=== PATIENT | female | born 1960 ===

== ENCOUNTER 2020-08-20 11:30 | Outpatient (REF) | payer MEDICARE, MEDICAID, SELFPAY | END 2020-08-20 11:31 | disposition home or self-care (01) | LOC: HO.HMGCLDS 11:30 | PROVIDERS: PCP Internal Medicine; Visit Provider Internal Medicine | DX: Z20.828 Contact with and (suspected) exposure to other viral communicable diseases (principal) | CPT/HCPCS: C9803; U0003 ==

== ENCOUNTER 2021-09-09 12:41 | Outpatient (REF) | payer MEDICARE, MEDICAID, SELFPAY ==
[2021-09-09 13:52] LABS: MANUAL DIFF FLAG NO
[2021-09-09 13:54] LABS: Basophils Percent Auto 0.3 % (0-2); Eosinophils Absolute Auto 0.2 X10*3/uL (0.0-0.4); Eosinophils Percent Auto 2.6 % (0-4); Hematocrit 39.6 % (37.0-47.0); Hemoglobin 12.6 g/dl (12.0-16.0); Imm Gran Abs Auto 0.03 X10*3/uL (0.00-0.03); Imm Gran Pct Auto 0.4 % (0.0-0.4); Lymphocytes Absolute Auto 1.7 X10*3/uL (1.2-4.9); Lymphocytes Percent Auto 21.8 % (20-40); Mean Corpuscular HGB Conc 31.8 g/dl (31.0-35.0); Mean Corpuscular Hemoglobin 28.3 pg (27.0-33.0); Mean Platelet Volume 11.3 fL (9.4-12.3); Monocytes Absolute Auto 0.7 X10*3/uL (0.1-1.2); Monocytes Percent Auto 9.3 % (2-11); Neutrophils Absolute Auto 5.2 x10*3/uL (2.0-8.3); Neutrophils Percent Auto 65.6 % (45-73); Platelet Count 255 X10*3/uL (160-400); Red Blood Count 4.45 X10*6/uL (4.20-5.50); Red Cell Distribution Width 14.3 % (11.0-16.0); White Blood Count 7.8 X10*3/uL (4.8-10.8)
[2021-09-09 14:30] LABS: Alanine Aminotransferase 17 U/L (0-31); Albumin Level 4.1 g/dL (3.5-5.0); Alkaline Phosphatase 105 U/L (39-117); Anion Gap 11 (12-20); Aspartate Amino Transferase 17 U/L (5-31); Bilirubin Total 0.4 mg/dL (0.0-1.0); Blood Urea Nitrogen 19 mg/dL (9-16); Calcium 9.8 mg/dL (8.4-10.2); Carbon Dioxide 30 mmol/L (22-29); Chloride 106 mmol/L (96-108); Cholesterol 235 mg/dL; Estimated Glomerular Filt Rate > 60; Glucose Random 87 mg/dL (60-115); HDL Cholesterol 54 mg/dL; LDL Cholesterol Calculated 162 mg/dl; Potassium 4.3 mmol/L (3.3-5.1); Sodium 143 mmol/L (135-145); Total Protein 7.5 g/dL (6.5-8.0); Triglycerides 95 mg/dL
[2021-09-09 14:39] LABS: TSH reflex Free T4 0.89 uIU/mL (0.32-4.0)
[2021-09-10 23:22] LABS: LDL Cholesterol Direct 160 mg/dL (<100)
== END 2021-09-09 12:42 | disposition home or self-care (01) ==
LOC: HO.HMGCLDS 12:41
PROVIDERS: PCP Internal Medicine; Visit Provider Internal Medicine
DX: E05.90 Thyrotoxicosis, unspecified without thyrotoxic crisis or storm (principal); E78.9 Disorder of lipoprotein metabolism, unspecified; F41.0 Panic disorder [episodic paroxysmal anxiety]; G43.109 Migraine with aura, not intractable, without status migrainosus
CPT/HCPCS: 36415; 80053; 80061; 83721; 84443; 85025

== ENCOUNTER 2023-06-21 13:03 | Outpatient (AMB) | payer MEDICARE, MEDICAID, SELFPAY ==
[2023-06-21 13:14] VITALS: BP 148/82; PULSE 80; TEMP 36.6; O2SAT 98
--- NOTE | 2023-06-21 13:14 | AM.OFFWIN_ITS ---
Intake Vital Signs 06/21/23 13:14 Height 5 ft 5 in Weight 180 lb BMI 30.0 BP 148/82 H Blood Pressure Location Rt brachial Position Sitting Pulse 80 Pulse Source Pulse Oximeter Temp 97.8 F Temp Source Temporal Artery Scan Pulse Oximetry (%) 98 Intake Visit Reasons: EP Headache, High BP, dizzy Intake Note: pt is here for c/o headaches, high blood pressure readings, dizziness. Patient Tobacco Use Status: Never used Tobacco Allergies gabapentin Allergy (Unknown, Verified 06/21/23 13:14) rash No Known Allergies Allergy (Verified 06/21/23 13:14) Do you need a note to return to daycare/school/sports/work: Yes HPI HPI Comments History of Present Illness Details 62-year-old female presents to the [facility] for a sick visit. She is accompanied by her daughter for this visit. Patient is complaining of feeling tired, dizzy and occasional headaches. She has been having elevated blood pressure since Wednesday. Systolic blood pressure has been in the 160 range. No nausea or vomiting. [facility] Social History Housing: House Alcohol intake: never Patient Tobacco Use Status: Never used Tobacco Second Hand Smoke Exposure: Yes Current occupational status: unemployed Physical Exam Vital Signs: Last Vital Signs Temp 97.8 F 06/21/23 13:14 Pulse 80 06/21/23 13:14 BP 148/82 H 06/21/23 13:14 Pulse Ox 98 06/21/23 13:14 BMI result Body Mass Index 30.0 Const General: cooperative and healthy appearing Nutritional Appearance: well nourished Orientation/consciousness: patient oriented x3 Limitations: no limitations HEENT Head: Yes normal to inspection Eyes General: appearance normal, both eyes and all related structures Neck Neck: Yes normal visual inspection Chest Chest palpation & inspection: normal palpation of entire chest wall Resp Effort & Inspection: normal respiratory effort Neuro General: patient oriented x3 Assessment & Plan Assessment & Plan (1) Essential hypertension: Code(s): I10 - Essential (primary) hypertension Plan: Medications have been started. Follow-up with primary care provider. Medications: New enalapril maleate 5 mg PO DAILY 30 tabs 0RF Coding Level of Care Code Est Pt Level 4 (74016) Diagnoses Essential hypertension I10
== END 2023-06-21 14:09 | disposition home or self-care (01) ==
PROVIDERS: PCP Internal Medicine; Visit Provider Internal Medicine
DX: I10 Essential (primary) hypertension (principal)
CPT/HCPCS: 99214

== ENCOUNTER 2023-06-23 13:27 | Outpatient (AMB) | payer MEDICARE, MEDICAID, SELFPAY ==
[2023-06-23 13:38] VITALS: BP 124/78; PULSE 96; O2SAT 97
--- NOTE | 2023-06-23 13:38 | A.OFFPC_ITS ---
Vital Signs 06/23/23 13:38 Height 5 ft 5 in Weight 180 lb 8 oz BMI 30.0 BP 124/78 Blood Pressure Location Rt brachial Position Sitting Pulse 96 Pulse Source Pulse Oximeter Pulse Oximetry (%) 97 Oxygen Delivery Method Room Air Intake Visit Reasons: Follow up Walk-in -BP, Dizziness Allergies gabapentin Allergy (Unknown, Verified 06/23/23 13:38) rash No Known Allergies Allergy (Verified 06/23/23 13:38) Medication List - Last Reconciled 06/23/23 by Anuj Schmid MD atorvastatin 40 mg PO DAILY 90 days cetirizine (Zyrtec) 10 mg PO DAILY PRN 90 days enalapril maleate 5 mg PO DAILY escitalopram oxalate (Lexapro) 10 mg PO DAILY 90 days Tobacco use date assessed: 06/23/23 Dental Screening Dental Screen Date: 06/23/23 Did you have a dental visit in the last 12 months?: Yes Did you have a dental problem in the last 6 months where you did not have access to dental care?: No Was dental information given to patient?: Patient has dentist HPI Follow up Walk-in -BP, Dizziness HPI Details Patient is 62-year-old female who was last seen August of 2021 after that patient did not come in for follow-up She tells me that she went to [place] and just returned back this month. Patient has been taking atorvastatin 40 mg all along But she stopped taking blood pressure medication She was evaluated in walk-in clinic on of this month when she presented w ith high blood pressure and dizziness. Patient was started back on enalapril 5 mg she is feeling much better. She is no longer taking any anxiety medication However she is complaining of severe constipation She has tried Dulcolax which has not helped her. I have told her to start taking Senokot S1 or 2 tablets every night. Most importantly she has to drink plenty of water every day. Add high-fiber diet. Labs are needed to be done today. Patient will return next month for physical examination. [facility] Social History Housing: House Alcohol intake: never Patient Tobacco Use Status: Never used Tobacco e-Cigarette/Vaping Use: Never Used Second Hand Smoke Exposure: Yes Current occupational status: unemployed Cognitive needs: No Hearing needs: No Vision needs: No Questionnaire PHQ-9 Over the last 2 weeks, how often have you been bothered by any of the following problems? 1. Little interest or pleasure in doing things: several days 2. Feeling down, depressed, or hopeless: several days 3. Trouble falling or staying asleep, or sleeping too much: several days 4. Feeling tired or having little energy: not at all 5. Poor appetite or overeating: not at all 6. Feeling bad about yourself - or that you are a failure or have let yourself or your family down: several days 7. Trouble concentrating on things, such as reading the newspaper or watching television: several days 8. Moving or speaking so slowly that other people could have noticed. Or the opposite - being so fidgety or restless that you have been moving around a lot more than usual: not at all 9. Thoughts that you would be better off or of hurting yourself in some way: not at all Total score: 5 Depression Screening Interpretation: Negative 51413 - PHQ-9 Billing: Yes Source: Developed by Drs. Yaron Olmstead, Amy Spain, Sandeep Bennett and colleagues, with an educational inder from [employer]. Thrive Questionnaire Date Thrive assessed: 06/23/23 I am a: Patient What is your living situation today?: I have a steady place to live Within the past 12 months, did the food you bought not last and you didn't have the money to get more?: Sometimes True Within the past 12 months, did you worry whether your food would run out before you got money to buy more?: Sometimes True Do you have trouble paying for medicines?: No Do you have trouble getting transportation to medical appointments?: No Do you have trouble paying your heating and electricity bill?: Yes Do you have trouble taking care of your child, family member or friend?: Yes Do you have trouble with day-to-day activities such as bathing, preparing meals, shopping, managing finances, etc.?: Yes Are you currently unemployed and looking for a job?: Yes Are you interested in more education?: Yes Currently or been in a relationship where the following occur: no concerns reported AUDIT C Alcohol Use Questionnaire (AUDIT-C) 1. How often do you have a drink containing alcohol?: Never 3. How often do you have six or more drinks on one occasion?: Never Total Score: 0 Score Reviewed/Action Taken: Yes SHANKAR-7 AMB Questionnaire SHANKAR-7 Date SHANKAR - 7 assessed: 06/23/23 Feeling nervous, anxious, or on edge: 0 = Not at all Not being able to stop or control worryin = Not at all Worrying too much about different things: 0 = Not at all Trouble relaxin = Not at all Being so restless that it is hard to sit still: 0 = Not at all Becoming easily annoyed or irritable: 0 = Not at all Feeling afraid as if something awful might happen: 0 = Not at all Total SHANKAR-7 score (0-4 normal; 5-9 mild; 10-14 moderate; 15-21 severe): 0 Source: Developed by Drs. Yaron Olmstead, Amy Spain, Sandeep Bennett and colleagues, with an educational inder from [employer]. SHANKAR-7 Assessment Billing SHANKAR-7 Assessment Tool: SHANKAR-7 Assessment 59829 Review of Systems Const Denies chills and Denies fever(s) ENT Denies epistaxis and Denies nasal discharge Card Denies chest pain Resp Denies chest congestion, Denies cough and Denies hemoptysis GI Denies diarrhea and Denies nausea Skin/Breast Denies rash Neuro Reports no additional complaints Psych Reports no additional complaints Endo Reports no additional complaints Physical exam (Primary Care) Vital Signs: Last Vital Signs Pulse 96 06/23/23 13:38 BP 124/78 06/23/23 13:38 Pulse Ox 97 06/23/23 13:38 Oxygen Delivery Method Room Air 06/23/23 13:38 BMI result Body Mass Index 30.0 Tobacco/Smoking Status: Tobacco use Status Tobacco use date assessed 06/23/23 06/23/23 13:38 Patient Tobacco Use Status Never used Tobacco 06/23/23 13:38 e-Cigarette/Vaping Use Never Used 06/23/23 13:38 PHQ-9: PHQ-9 Score PHQ-9: Total score 5 06/23/23 13:58 Depression Screening Interpretation: Negative Thrive Assessment: Date of Thrive Assessment Date Thrive assessed 06/23/23 06/23/23 13:58 Currently or been in a relationship where the following occur: no concerns reported Const General: cooperative, comfortable and no acute distress Orientation/consciousness: patient oriented x3 HENMT Head: Yes normocephalic Eyes General: appearance normal, both eyes and all related structures Neck Neck: Yes supple Resp Effort & Inspection: normal respiratory effort, no cough and no stridor Cardio Rhythm: regular rhythm Heart sounds: S1 normal heart sound present and S2 normal heart sound present Skin General skin exam: turgor normal Neuro General: patient oriented x3, tone normal and moves all extremities Extrem Right lower extremity: no edema Left lower extremity: no edema Assessment and Plan Assessment & Plan (1) Essential hypertension: Code(s): I10 - Essential (primary) hypertension (2) Lipid disorder: Code(s): E78.9 - Disorder of lipoprotein metabolism, unspecified (3) Constipation: Code(s): K59.00 - Constipation, unspecified Qualifiers: Constipation type: slow transit constipation Qualified Code(s): K59.01 - Slow transit constipation Plan Patient is 62-year-old female who was last seen August of 2021 after that patient did not come in for follow-up She tells me that she went to [place] and just returned back this month. Patient has been taking atorvastatin 40 mg all along But she stopped taking blood pressure medication She was evaluated in walk-in clinic on of this month when she presented with high blood pressure and dizziness. Patient was started back on enalapril 5 mg she is feeling much better. She is no longer taking any anxiety medication However she is complaining of severe constipation She has tried Dulcolax which has not helped her. I have told her to start ta sofiya Senokot S1 or 2 tablets every night. Most importantly she has to drink plenty of water every day. Add high-fiber diet. Labs are needed to be done today. Patient will return next month for physical examination. Orders: Orders Comprehensive Met. Panel Today E78.9 - Disorder of lipoprotein metabolism, unspecified, I10 - Essential (primary) hypertension, K59.00 - Constipation, unspecified Complete Blood Count Auto Diff Today E78.9 - Disorder of lipoprotein metabolism, unspecified, I10 - Essential (primary) hypertension, K59.00 - Constipation, unspecified TSH reflex Free T4 Today E78.9 - Disorder of lipoprotein metabolism, unspecified, I10 - Essential (primary) hypertension, K59.00 - Constipation, unspecified LDL Cholesterol Direct Today E78.9 - Disorder of lipoprotein metabolism, unspecified, I10 - Essential (primary) hypertension, K59.00 - Constipation, unspecified Medications: Refilled enalapril maleate 5 mg PO DAILY 90 tabs 0RF Discontinued escitalopram oxalate (Lexapro) Discontinued Reason: Doctor's Order 10 mg PO DAILY 90 days 90 tabs 0RF F41.0 - Panic disorder [episodic paroxysmal anxiety] Coding Level of Care Code Est Pt Level 4 (85760) Diagnoses Essential hypertension I10 Lipid disorder E78.9 Slow transit constipation K59.01 Constipation type: slow transit constipation Additional Codes SHANKAR-7 Assessment Billing - SHANKAR-7 Assessment Tool: SHANKAR-7 Assessment 58813 ([id number])
== END 2023-06-23 13:54 | disposition home or self-care (01) ==
PROVIDERS: PCP Internal Medicine; Visit Provider Internal Medicine
DX: I10 Essential (primary) hypertension (principal); E78.9 Disorder of lipoprotein metabolism, unspecified; K59.01 Slow transit constipation
CPT/HCPCS: 99214

== ENCOUNTER 2023-06-23 13:56 | Outpatient (REF) | payer MEDICARE, MEDICAID, SELFPAY ==
[2023-06-23 16:02] LABS: MANUAL DIFF FLAG NO
[2023-06-23 16:08] LABS: Basophils Percent Auto 0.6 % (0-2); Eosinophils Absolute Auto 0.2 X10*3/uL (0.0-0.4); Eosinophils Percent Auto 2.1 % (0-4); Hematocrit 39.7 % (37.0-47.0); Hemoglobin 12.5 g/dl (12.0-16.0); Imm Gran Abs Auto 0.01 X10*3/uL (0.00-0.03); Imm Gran Pct Auto 0.1 % (0.0-0.4); Lymphocytes Absolute Auto 2.7 X10*3/uL (1.2-4.9); Lymphocytes Percent Auto 37.6 % (20-40); Mean Corpuscular HGB Conc 31.5 g/dl (31.0-35.0); Mean Platelet Volume 11.8 fL (9.4-12.3); Monocytes Absolute Auto 0.6 X10*3/uL (0.1-1.2); Monocytes Percent Auto 7.9 % (2-11); Neutrophils Absolute Auto 3.7 x10*3/uL (2.0-8.3); Neutrophils Percent Auto 51.7 % (45-73); Platelet Count 265 X10*3/uL (160-400); Red Blood Count 4.46 X10*6/uL (4.20-5.50); Red Cell Distribution Width 14.3 % (11.0-16.0); White Blood Count 7.2 X10*3/uL (4.8-10.8)
[2023-06-23 16:30] LABS: Alanine Aminotransferase 16 U/L (0-31); Albumin Level 4.2 g/dL (3.5-5.0); Alkaline Phosphatase 85 U/L (39-117); Anion Gap 12 (12-20); Aspartate Amino Transferase 16 U/L (5-31); Bilirubin Total 0.4 mg/dL (0.0-1.0); Blood Urea Nitrogen 11 mg/dL (9-16); Calcium 9.5 mg/dL (8.4-10.2); Carbon Dioxide 28 mmol/L (22-29); Chloride 104 mmol/L (96-108); Estimated Glomerular Filt Rate > 60; Glucose Random 86 mg/dL (60-115); Potassium 3.9 mmol/L (3.3-5.1); Sodium 140 mmol/L (135-145); Total Protein 7.6 g/dL (6.5-8.0)
[2023-06-23 16:35] LABS: TSH reflex Free T4 0.92 uIU/mL (0.32-4.0)
[2023-06-24 16:19] LABS: LDL Cholesterol Direct 191 mg/dL (<100)
== END 2023-06-23 13:57 | disposition home or self-care (01) ==
LOC: HO.HMGCLDS 13:56
PROVIDERS: PCP Internal Medicine; Visit Provider Internal Medicine
DX: I10 Essential (primary) hypertension (principal); E78.9 Disorder of lipoprotein metabolism, unspecified; K59.00 Constipation, unspecified
CPT/HCPCS: 36415; 80053; 83721; 84443; 85025

== ENCOUNTER → 2023-07-22 11:15 | Outpatient (BNV) | payer MEDICARE, MEDICAID, SELFPAY | PROVIDERS: PCP Internal Medicine; Visit Provider Radiology Diagnostic Radiology | DX: Z12.31 Encounter for screening mammogram for malignant neoplasm of breast (principal) | CPT/HCPCS: 77063; 77067 ==

== ENCOUNTER 2023-07-22 11:25 | Outpatient (REF) | payer MEDICARE, MEDICAID, SELFPAY ==
--- NOTE | ~2023-07-22 | MM_ITS ---
EXAMINATION: MM SCREENING DIGITAL BREAST TOMOSYNTHESIS, BILATERAL CLINICAL INFORMATION: Screening. Asymptomatic. COMPARISON: Mammography: 11/14/2019, 11/08/2019, 07/20/2018, and studies dating back to 02/27/2015. TECHNIQUE: Digital breast tomosynthesis is performed in both the craniocaudal and mediolateral oblique views along with computer-aided detection (CAD). Synthesized 2D images are generated from the tomosynthesis. FINDINGS: The breasts are heterogeneously dense, which may obscure small masses (ACR BI-RADS breast composition Category c). There are unchanged punctate regional calcifications in both breasts within the heterogeneously dense breast parenchyma, benign. There is a focal asymmetry in the LEFT breast lower inner quadrant, mid to anterior one third, for which spot 3-D magnification views are recommended in the CC and MLO projections. Ultrasound may also be of benefit. No suspicious findings in the RIGHT breast. MM/MM tomosynthesis screening BI IMPRESSION: Asymmetric density in the lower inner left breast, mid to anterior one third, for which diagnostic views are recommended as detailed. Ultrasound may be utilized as well at the discretion of the interpreting radiologist. Otherwise, benign findings which are stable. ASSESSMENT: BI-RADS BI-RADS 0 - Incomplete: Needs additional Imaging. RECOMMENDATION: 1. Additional views of the left breast. 2. Targeted ultrasound if warranted after review of the additional views. 3. Radiology department staff will contact the patient for additional imaging. Additional Imaging required This examination should not preclude the clinical evaluation of a suspicious palpable abnormality.
== END 2023-07-22 11:26 | disposition home or self-care (01) ==
LOC: HO.MAMMO 11:25
PROVIDERS: PCP Internal Medicine; Visit Provider Internal Medicine
DX: Z12.31 Encounter for screening mammogram for malignant neoplasm of breast (principal)
CPT/HCPCS: 77063; 77067

== ENCOUNTER 2023-08-12 09:29 | Outpatient (REF) | payer MEDICARE, MEDICAID, SELFPAY ==
--- NOTE | ~2023-08-12 | US_ITS ---
EXAMINATION: MM DIAGNOSTIC DIGITAL BREAST TOMOSYNTHESIS, LEFT US BREAST LIMITED, LEFT MAMMOGRAPHY: CLINICAL INFORMATION: Evaluate focal asymmetry inferomedial left breast seen on screening exam. Also evaluated focal asymmetry lower inferior breast, mid to anterior one third seen on screening exam. COMPARISON: Mammography: 07/22/2023 TECHNIQUE: Digital breast tomosynthesis is performed in the following projections: 3-D full-field left mediolateral view, 3-D full-field left CC spot compression view and left MLO spot compression view. Synthesized 2D images are generated from the tomosynthesis. FINDINGS: The breasts are heterogeneously dense, which may obscure small masses (ACR BI-RADS breast composition Category c). Spot compression views demonstrate no persistent mass in the left breast lower inner quadrant. Only prominent asymmetric breast tissue is seen in this region, without suspicious mass, or area of developing architectural distortion. In the apex of the left tissue cone, there may be a developing region of architectural distortion, and attention on follow-up mammograms should be given in this region. Otherwise, there are no suspicious masses, suspicious grouped calcifications, or areas of architectural distortion in the left breast. The parenchymal pattern is stable from prior exams. ULTRASOUND: CLINICAL INFORMATION: As above COMPARISON: None relevant. TECHNIQUE: Targeted sonographic evaluation was performed using a high frequency linear transducer. Attention was given to the lower inferior breast, mid to anterior one third depth. Selected archived documentation. FINDINGS: LEFT BREAST: There is a mixture of fatty and fibroglandular tissue. No suspicious mass is seen. There is no pathologic acoustic shadowing. No cystic abnormality identified. No edema within the soft tissue planes. Recommend additional imaging of this breasts including spot compression views both medially and laterally. US/US breast LT limited mamm only IMPRESSION: Findings potentially representing malignancy. Additional imaging utilized. OVERALL ASSESSMENT: Mammography: BI-RADS 0 - Incomplete: Needs additional Imaging. Ultrasound: BI-RADS 0 - Incomplete: Needs additional Imaging. RECOMMENDATION: Additional Imaging required This patient's information was entered into a reminder system with a target due date for their next mammogram.
== END 2023-08-12 09:30 | disposition home or self-care (01) ==
LOC: HO.MAMMO 09:29
PROVIDERS: PCP Internal Medicine; Visit Provider Internal Medicine
DX: N64.89 Other specified disorders of breast (principal)
CPT/HCPCS: 76642; 77061; 77065

== ENCOUNTER 2023-08-27 14:45 | Outpatient (AMB) | payer MEDICARE, MEDICAID, SELFPAY ==
--- NOTE | 2023-08-27 14:54 | A.OFFVIS_ITS ---
Intake Vital Signs 08/27/23 14:55 Height 5 ft 5 in Weight 178 lb 2.136 oz BMI 29.6 BP 128/89 Blood Pressure Location Lt brachial Position Sitting Pulse 96 Intake Visit Reasons: Constipation/[place] Screen Intake Note: Patient presents as a new patient referred for constipation and colonoscopy screening. CC: Patient states she has been suffering from constipation for a long time . Per patient constipation is now worst and sometimes she does not have a BM for 4-5 days and when she goes she feels like she is passing out from pain. Denies N/V, blood in stool. She states the only way she is able to have a BM is when she takes a natural pill she brings from DR. [employer] Director Required: No Accompanied by: Self / Same As Patient Allergies gabapentin Allergy (Unknown, Verified 07/20/23 13:53) rash HPI Constipation/[place] Screen HPI Details 62-year-old female with past medical his tory of hypertension, migraines, hyperlipidemia, and anxiety disorder is here today for initial consultation. Patient was sent for colonoscopy screening. Last colonoscopy April of 2014, normal. Patient reports that she has been very constipated lately. She has been constipated for a long time, however lately there is times when she does not have a bowel movement for 4-5 days. Patient denies any melena, hematochezia, unintentional weight loss or ribbon like stools. Patient denies any dyspepsia, dysphagia or odynophagia. Patient tried multiple different [id number] medications without any success. [facility] Surgical History S/P section H/O colonoscopy Social History Housing: House Alcohol intake: never Patient Tobacco Use Status: Never used Tobacco e-Cigarette/Vaping Use: Never Used Second Hand Smoke Exposure: Yes Current occupational status: unemployed Cognitive needs: No Hearing needs: No Vision needs: No Review of Systems Const Denies weight gain and Denies weight loss ENT Reports no additional complaints, Denies dysphagia and Denies odynophagia Card Reports no additional complaints Resp Reports no additional complaints GI Denies abdominal pain, Denies belching, Denies melena, Reports bloating, Denies change in bowel habits, Reports constipation, Denies dysphagia, Denies excessive flatus, Denies dyspepsia, Denies heartburn, Denies diarrhea, Denies loose stools, Denies nausea, Denies odynophagia and Denies vomiting Reports no additional complaints Musc Reports no additional complaints Neuro Reports no additional complaints Psych Reports no additional complaints Endo Reports no additional complaints Physical Exam Vital Signs: Last Vital Signs Pulse 96 08/27/23 14:55 BP 128/89 08/27/23 14:55 BMI result Body Mass Index 29.6 Const General: healthy appearing, no acute distress and well developed Nutritional Appearance: obese Orientation/consciousness: patient oriented x3 HEENT Head: Yes normal to inspection, Yes normocephalic and Yes atraumatic Face and sinus: Yes normal facial exam Mouth: Normal oral and palatal mucosa present Throat: Yes posterior oropharynx normal, Yes tonsils normal and Yes uvula midline Eyes General: appearance normal, both eyes and all related structures Neck Neck: Yes normal visual inspection, Yes full ROM and Yes trachea midline Thyroid: Thyroid normal Resp Effort & Inspection: normal respiratory effort, able to speak in complete sentences, no tracheal deviation and symmetric chest movement Auscultation: clear to auscultation bilaterally Cardio Rate: regular rate GI Inspection: Yes normal to inspection, No distended and Yes obesity Palpation (GI): Soft to palpation, not firm, nontender and No hepatosplenomegaly present Auscultation: normal bowel sounds General: Yes no CVA tenderness Back/Spine/Pelvis Back: no CVA tenderness Skin General skin exam: elasticity normal, turgor normal and dry skin Neuro General: patient oriented x3 Psych Appearance: grossly normal Mental Status: mental status grossly normal Assessment & Plan Assessment & Plan (1) Constipation: Code(s): K59.00 - Constipation, unspecified Qualifiers: Constipation type: slow transit constipation Qualified Code(s): K59.01 - Slow transit constipation Plan Patient was encouraged to increase fluid intake and activity to promote better bowel daily. She will start Linzess, we may need to increase the dose. Patient will call our office if she will have any other GI concerning symptoms. She is agreeable to this plan and verbalizes understanding of instructions. She was given the opportunity to ask questions and all questions answered. Thank you for allowing me to participate in her care Medications: New linaclotide (Linzess) 145 mcg PO DAILY 30 caps 2RF Coding Level of Care Code New Pt Level 3 (76812) Diagnoses Slow transit constipation K59.01 Constipation type: slow transit constipation Time Spent (min) 40 Comment 30 minutes spent with patient and additional 10 minutes spent reviewing her records
[2023-08-27 14:55] VITALS: BP 128/89; PULSE 96; BMI 29.6
== END 2023-08-27 15:28 | disposition home or self-care (01) ==
PROVIDERS: PCP Internal Medicine; Visit Provider Nurse Practitioner Family
DX: K59.01 Slow transit constipation (principal)
CPT/HCPCS: 99203

== ENCOUNTER → 2023-08-27 14:45 | Outpatient (BNVA) | payer MEDICARE, MEDICAID, SELFPAY | PROVIDERS: PCP Internal Medicine; Visit Provider Nurse Practitioner Family | DX: K59.01 Slow transit constipation (principal) | CPT/HCPCS: 99202 ==

== ENCOUNTER 2023-10-08 08:36 | Outpatient (AMB) | payer MEDICARE, MEDICAID, SELFPAY ==
--- NOTE | 2023-10-08 08:40 | A.OFFPC_ITS ---
Vital Signs 10/08/23 08:41 Height 5 ft 5 in Weight 177 lb 4 oz BMI 29.5 BP 126/82 Blood Pressure Location Lt brachial Position Sitting Pulse 79 Pulse Source Pulse Oximeter Pulse Oximetry (%) 96 Oxygen Delivery Method Room Air Intake Visit Reasons: High BP and Palpitations~ Allergies gabapentin Allergy (Unknown, Verified 10/08/23 08:44) rash Medication List - Last Reconciled 10/08/23 by Anuj Schmid MD atorvastatin 40 mg PO DAILY 90 days cetirizine (Zyrtec) 10 mg PO DAILY PRN 90 days enalapril maleate 5 mg PO DAILY linaclotide (Linzess) 145 mcg PO DAILY Tobacco use date assessed: 07/20/23 Dental Screening Dental Screen Date: 10/08/23 Did you have a dental visit in the last 12 months?: No Did you have a dental problem in the last 6 months where you did not have access to dental care?: No Was dental information given to patient?: Patient has dentist HPI High BP and Palpitations~ HPI Details Patient is 62-year-old female came in today to be evaluated for fluctuating blood pressure, anxiety panic like feeling and palpitations Patient have a long standing history of depression and anxiety And palpitations as well But she stopped taking her medication a while ago when she started feeling better Her blood pressure is 126/82 Patient says that when she was coming in and felt as if she is late she started having palpitations Heart rate is regular I am restarting her on Lexapro 10 mg that she was taking in the past Patient is to come back in 3 weeks for evaluation [facility] Surgical History S/P section H/O colonoscopy Social History Housing: House Alcohol intake: never Patient Tobacco Use Status: Never used Tobacco e-Cigarette/Vaping Use: Never Used Second Hand Smoke Exposure: Yes Current occupational status: unemployed Cognitive needs: No Hearing needs: No Vision needs: No Questionnaire PHQ-9 Over the last 2 weeks, how often have you been bothered by any of the following problems? 1. Little interest or pleasure in doing things: several days 2. Feeling down, depressed, or hopeless: several days 3. Trouble falling or staying asleep, or sleeping too much: several days 4. Feeling tired or having little energy: not at all 5. Poor appetite or overeating: not at all 6. Feeling bad about yourself - or that you are a failure or have let yourself or your family down: several days 7. Trouble concentrating on things, such as reading the newspaper or watching television: not at all 8. Moving or speaking so slowly that other people could have noticed. Or the opposite - being so fidgety or restless that you have been moving around a lot more than usual: not at all 9. Thoughts that you would be better off or of hurting yourself in some way: not at all Total score: 4 Depression Screening Interpretation: Negative Depression Screening Done: Yes 20023 - PHQ-9 Billing: Yes Source: Developed by Drs. Yaron Olmstead, Amy Spain, Sandeep Bennett and colleagues, with an educational inder from [employer]. Thrive Questionnaire Date Thrive assessed: 10/08/23 I am a: Patient What is your living situation today?: I have a steady place to live Within the past 12 months, did the food you bought not last and you didn't have the money to get more?: Never true Within the past 12 months, did you worry whether your food would run out before you got money to buy more?: Sometimes True Do you have trouble paying for medicines?: No Do you have trouble getting transportation to medical appointments?: Yes Do you have trouble paying your heating and electricity bill?: Yes Do you have trouble taking care of your child, family member or friend?: No Do you have trouble with day-to-day activities such as bathing, preparing meals, shopping, managing finances, etc.?: Yes Are you currently unemployed and looking for a job?: Yes Are you interested in more education?: Yes Please select the resources that you would like help with: None Currently or been in a relationship where the following occur: no concerns reported AUDIT C Alcohol Use Questionnaire (AUDIT-C) 1. How often do you have a drink containing alcohol?: Never 3. How often do you have six or more drinks on one occasion?: Never Total Score: 0 Score Reviewed/Action Taken: Yes SHANKAR-7 AMB Questionnaire SHANKAR-7 Date SHANKAR - 7 assessed: 10/08/23 Feeling nervous, anxious, or on edge: 0 = Not at all Not being able to stop or control worryin = Not at all Worrying too much about different things: 0 = Not at all Trouble relaxin = Several days Being so restless that it is hard to sit still: 0 = Not at all Becoming easily annoyed or irritable: 0 = Not at all Feeling afraid as if something awful might happen: 1 = Several days Total SHANKAR-7 score (0-4 normal; 5-9 mild; 10-14 moderate; 15-21 severe): 2 Source: Developed by Drs. Yaron Olmstead, Amy Spain, Sandeep Bennett and colleagues, with an educational inder from [employer]. SHANKAR-7 Assessment Billing SHANKAR-7 Assessment Tool: SHANKAR-7 Assessment 23529 Review of Systems Const Denies chills and Denies fever(s) ENT Denies epistaxis and Denies nasal discharge Card Denies chest pain Resp Denies chest congestion, Denies cough and Denies hemoptysis GI Denies diarrhea and Denies nausea Skin/Breast Denies rash Neuro Reports no additional complaints Psych Reports no additional complaints Endo Reports no additional complaints Physical exam (Primary Care) Vital Signs: Last Vital Signs Pulse 79 10/08/23 08:41 BP 126/82 10/08/23 08:41 Pulse Ox 96 10/08/23 08:41 Oxygen Delivery Method Room Air 10/08/23 08:41 BMI result Body Mass Index 29.5 Tobacco/Smoking Status: Tobacco use Status Tobacco use date assessed 07/20/23 10/08/23 08:45 Patient Tobacco Use Status Never used Tobacco 10/08/23 08:45 e-Cigarette/Vaping Use Never Used 10/08/23 08:45 PHQ-9: PHQ-9 Score PHQ-9: Total score 4 10/08/23 10:20 Depression Screening Interpretation: Negative Thrive Assessment: Date of Thrive Assessment Date Thrive assessed 10/08/23 10/08/23 10:20 Currently or been in a relationship where the following occur: no concerns repor garry Const General: cooperative, comfortable and no acute distress Orientation/consciousness: patient oriented x3 HENMT Head: Yes normocephalic Eyes General: appearance normal, both eyes and all related structures Neck Neck: Yes supple Resp Effort & Inspection: normal respiratory effort, no cough and no stridor Cardio Rhythm: regular rhythm Heart sounds: S1 normal heart sound present and S2 normal heart sound present Skin General skin exam: turgor normal Neuro General: patient oriented x3, tone normal and moves all extremities Extrem Right lower extremity: no edema Left lower extremity: no edema Assessment and Plan Assessment & Plan (1) Panic anxiety syndrome: Code(s): F41.0 - Panic disorder [episodic paroxysmal anxiety] (2) Palpitations: Code(s): R00.2 - Palpitations (3) Essential hypertension: Code(s): I10 - Essential (primary) hypertension Plan Patient is 62-year-old female came in today to be evaluated for fluctuating blood pressure, anxiety panic like feeling and palpitations Patient have a long standing history of depression and anxiety And palpitations as well But she stopped taking her medication a while ago when she started feeling better Her blood pressure is 126/82 Patient says that when she was coming in and felt as if she is late she started having palpitations Heart rate is regular I am restarting her on Lexapro 10 mg that she was taking in the past Patient is to come back in 3 weeks for evaluation Medications: Changed From escitalopram oxalate 10 mg PO DAILY 90 days 90 tabs 0RF F41.0 - Panic disorder [episodic paroxysmal anxiety] To escitalopram oxalate (Lexapro) 10 mg PO DAILY 30 tabs 0RF 30 days F41.0 - Panic disorder [episodic paroxysmal anxiety] Coding Level of Care Code Est Pt Level 4 (99820) Diagnoses Panic anxiety syndrome F41.0 Palpitations R00.2 Essential hypertension I10 Additional Codes SHANKAR-7 Assessment Billing - SHANKAR-7 Assessment Tool: SHANKAR-7 Assessment 64668 ([id number])
[2023-10-08 08:41] VITALS: BP 126/82; PULSE 79; O2SAT 96; BMI 29.5
== END 2023-10-08 10:20 | disposition home or self-care (01) ==
PROVIDERS: PCP Internal Medicine; Visit Provider Internal Medicine
DX: R00.2 Palpitations (principal); F41.0 Panic disorder [episodic paroxysmal anxiety]; I10 Essential (primary) hypertension
CPT/HCPCS: 99214

== ENCOUNTER 2023-10-28 09:48 | Outpatient (AMB) | payer MEDICARE, MEDICAID, SELFPAY ==
--- NOTE | 2023-10-28 09:51 | A.OFFVIS_ITS ---
Intake Vital Signs 10/28/23 09:54 Height 5 ft 5 in Weight 174 lb 2.643 oz BMI 29.0 BP 132/81 Blood Pressure Location Lt brachial Position Sitting Intake Visit Reasons: 2 Month Follow Up Intake Note: Marbella presents in the office as a 2 month follow up. CC: She states that she is not having any concerns! She states that Wanda made her life happy and fixed her problems!! Allergies gabapentin Allergy (Unknown, Verified 10/28/23 09:54) rash HPI 2 Month Follow Up HPI Details LAST VISIT: Constipation Plan Patient was encouraged to increase fluid intake and activity to promote better bowel daily. She will start Linzess, we may need to increase the dose. Patient will call our office if she will have any other GI concerning symptoms. She is agreeable to this plan and verbalizes understanding of instructions. She was given the opportunity to ask questions and all questions answered. ? Thank you for allowing me to participate in her care Medications New linaclotide (Linzess) 145 mcg PO DAILY 30 caps 2RF TODAY'S VISIT: Patient is here today for follow-up. Patient reports that she has been feeling better since she started taking Linzess. Patient last few lb and is able to food to some of clothes that she was unable to wear couple years ago. Patient continues to feel bloated after eating certain food. Able to move her bowels without any issues. Patient denies any melena, hematochezia, unintentional weight loss or ribbon like stools patient denies any dyspepsia, dysphagia or odynophagia. Colonoscopy in April of 2014 patient will be due to go for colonoscopy this April. [facility], [facility] Surgical History S/P section H/O colonoscopy Social History Housing: House Alcohol intake: never Patient Tobacco Use Status: Never used Tobacco e-Cigarette/Vaping Use: Never Used Second Hand Smoke Exposure: Yes Current occupational status: unemployed Cognitive needs: No Hearing needs: No Vision needs: No Review of Systems Const Denies weight gain and Denies weight loss ENT Reports no additional complaints, Denies dysphagia and Denies odynophagia Card Reports no additional complaints Resp Reports no additional complaints GI Denies abdominal pain, Denies belching, Denies melena, Denies bloating, Denies change in bowel habits, Denies dysphagia, Denies excessive flatus, Denies dyspepsia, Denies heartburn, Denies diarrhea, Denies loose stools, Denies nausea, Denies odynophagia and Denies vomiting Musc Reports no additional complaints Neuro Reports no additional complaints Psych Reports no additional complaints Endo Reports no additional complaints Physical Exam Vital Signs: Last Vital Signs BP 132/81 10/28/23 09:54 BMI result Body Mass Index 29.0 Const General: healthy appearing, no acute distress and well developed Nutritional Appearance: well nourished Orientation/consciousness: patient oriented x3 Resp Effort & Inspection: normal respiratory effort, able to speak in complete sentences, no tracheal deviation and symmetric chest movement Auscultation: clear to auscultation bilaterally Cardio Rate: regular rate GI Inspection: Yes normal to inspection, No distended and Yes obesity Palpation (GI): Soft to palpation, not firm, nontender and No hepatosplenomegaly present Auscultation: normal bowel sounds General: Yes no CVA tenderness Back/Spine/Pelvis Back: no CVA tenderness Skin General skin exam: elasticity normal, turgor normal and dry skin Neuro General: patient oriented x3 Psych Appearance: grossly normal Mental Status: mental status grossly normal Assessment & Plan Assessment & Plan (1) Constipation: Code(s): K59.00 - Constipation, unspecified Qualifiers: Constipation type: slow transit constipation Qualified Code(s): K59.01 - Slow transit constipation (2) Postprandial abdominal bloating: Code(s): R14.0 - Abdominal distension (gaseous) Plan Patient will continue Linzess. Discussed with her low FODMAP diet. List of food recommended as well as list of food to avoid given to patient. Patient will take simethicone on as needed basis. I will see her in 2 months we will send patient for colonoscopy and discuss what to expect before during and after the procedure. Patient is agreeable to this plan and verbalizes understanding of instructions. She was given the opportunity to ask questions all questions answered. Thank you for allowing me to participate in her care Medications: New simethicone 125 mg PO BID-QID PRN 120 caps 3RF abdominal distention Refilled linaclotide (Linzess) 145 mcg PO DAILY 90 caps 2RF Coding Level of Care Code Est Pt Level 3 (53469) Diagnoses Slow transit constipation K59.01 Constipation type: slow transit constipation Postprandial abdominal bloating R14.0 Time Spent (min) 25 Comment 15 minutes spent with patient and additional 10 minutes spent reviewing her records
[2023-10-28 09:54] VITALS: BP 132/81; BMI 29.0
== END 2023-10-28 10:24 | disposition home or self-care (01) ==
PROVIDERS: PCP Internal Medicine; Visit Provider Nurse Practitioner Family
DX: K59.01 Slow transit constipation (principal); R14.0 Abdominal distension (gaseous)
CPT/HCPCS: 99213

== ENCOUNTER → 2023-10-28 09:48 | Outpatient (BNVA) | payer MEDICARE, MEDICAID, SELFPAY | PROVIDERS: PCP Internal Medicine; Visit Provider Nurse Practitioner Family | DX: K59.01 Slow transit constipation (principal); R14.0 Abdominal distension (gaseous); Z79.899 Other long term (current) drug therapy | CPT/HCPCS: 99212 ==

== ENCOUNTER 2024-01-07 11:12 | Outpatient (AMB) | payer MEDICARE, MEDICAID, SELFPAY ==
--- NOTE | 2024-01-07 11:13 | A.OFFVIS_ITS ---
Intake Vital Signs 01/07/24 11:14 Height 5 ft 5 in Weight 179 lb 14.355 oz BMI 29.9 BP 116/72 Blood Pressure Location Lt brachial Position Sitting Pulse 95 Intake Visit Reasons: 3 month follow up rediscuss colonoscopy Intake Note: Patient here for 2m f/u. Re- discuss colonoscopy. Last colonoscopy at age 57. Reports constipation is improved. Taking Linzess. Patient would like to get rx for gas relief. 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 Discussed with her low FODMAP diet. List of food recommended as well as list of food to avoid given to patient. Patient will take simethicone on as needed basis. I will see her in 2 months we will send patient for colonoscopy and discuss what to expect before during and after the procedure. Patient is agreeable to this plan and verbalizes understanding of instructions. She was given the opportunity to ask questions all questions answered. ? Thank you for allowing me to participate in her care Medications New simethicone 125 mg PO BID-QID PRN 120 caps 3RF abdom inal distention Refilled linaclotide (Linzess) 145 mcg PO DAILY 90 caps 2RF TODAY'S VISIT Patient is here today for follow-up and to discuss going for colonoscopy. Patient reports that since she started taking Linzess she has been doing well. Denies any melena, hematochezia, unintentional weight loss or ribbon like stools. Reports postprandial abdominal bloating, requesting simethicone for bloating. Patient denies any issues with anesthesia in the past. No history of sleep apnea. Patient is not taking any anticoagulation medication. Denies any cardiac or respiratory symptoms. [facility] Surgical History S/P section H/O colonoscopy Social History Housing: House Alcohol intake: never Patient Tobacco Use Status: Never used Tobacco e-Cigarette/Vaping Use: Never Used Second Hand Smoke Exposure: Yes Current occupational status: unemployed Cognitive needs: No Hearing needs: No Vision needs: No Review of Systems Const Denies weight gain and Denies weight loss ENT Reports no additional complaints, Denies dysphagia and Denies odynophagia Card Reports no additional complaints Resp Reports no additional complaints GI Denies abdominal pain, Denies belching, Denies melena, Reports bloating (Occasional), Denies change in bowel habits, Denies dysphagia, Denies excessive flatus, Denies dyspepsia, Denies heartburn, Denies diarrhea, Denies loose stools, Denies nausea, Denies odynophagia and Denies vomiting Musc Reports no additional complaints Neuro Reports no additional complaints Psych Reports no additional complaints Endo Reports no additional complaints Physical Exam Vital Signs: Last Vital Signs Pulse 95 01/07/24 11:14 BP 116/72 01/07/24 11:14 BMI result Body Mass Index 29.9 Const General: healthy appearing, no acute distress and well developed Nutritional Appearance: well nourished Orientation/consciousness: patient oriented x3 Resp Effort & Inspection: normal respiratory effort, able to speak in complete se ntences, no tracheal deviation and symmetric chest movement Auscultation: clear to auscultation bilaterally Cardio Rate: regular rate GI Inspection: Yes normal to inspection and No distended Palpation (GI): Soft to palpation, not firm, nontender and No hepatosplenomegaly present Auscultation: normal bowel sounds General: Yes no CVA tenderness Back/Spine/Pelvis Back: no CVA tenderness Skin General skin exam: elasticity normal, turgor normal and dry skin Neuro General: patient oriented x3 Psych Appearance: grossly normal Mental Status: mental status grossly normal Assessment & Plan Assessment & Plan (1) Constipation: Code(s): K59.00 - Constipation, unspecified Qualifiers: Constipation type: slow transit constipation Qualified Code(s): K59.01 - Slow transit constipation (2) Postprandial abdominal bloating: Code(s): R14.0 - Abdominal distension (gaseous) (3) Screen for colon cancer: Code(s): Z12.11 - Encounter for screening for malignant neoplasm of colon Plan Patient will be book for colonoscopy. Continue taking Linzess daily. Patient was encouraged to increase fluid intake and activity to promote better bowel motility. Patient denies any issues with anesthesia in the past. No history of sleep apnea. Not on any anticoagulation medication. Patient denies any cardiac or respiratory symptoms. What to expect before during and after procedure discussed with patient. Patient requesting simethicone for bloating. Continue low FODMAP diet. Discussed with patient the importance of good bowel prep as well as clear liquid diet. I will see her after the procedure, sooner on as needed basis. Patient is agreeable to this plan and verbalizes understanding of instructions. She was given the opportunity to ask questions and all questions answered. Thank you for allowing me to participate in her care Medications: Refilled simethicone 125 mg PO BID-QID PRN 120 caps 3RF abdominal distention Coding Level of Care Code Est Pt Level 3 (17347) Diagnoses Slow transit constipation K59.01 Constipation type: slow transit constipation Postprandial abdominal bloating R14.0 Screen for colon cancer Z12.11 Time Spent (min) 30 Comment 20 minutes spent with patient and additional 10 minutes spent reviewing her records
[2024-01-07 11:14] VITALS: BP 116/72; PULSE 95; BMI 29.9
== END 2024-01-07 12:06 | disposition home or self-care (01) ==
PROVIDERS: PCP Internal Medicine; Visit Provider Nurse Practitioner Family
DX: K59.01 Slow transit constipation (principal); R14.0 Abdominal distension (gaseous); Z12.11 Encounter for screening for malignant neoplasm of colon
CPT/HCPCS: 99213

== ENCOUNTER → 2024-01-07 11:12 | Outpatient (BNVA) | payer MEDICARE, MEDICAID, SELFPAY | PROVIDERS: PCP Internal Medicine; Visit Provider Nurse Practitioner Family | DX: Z12.11 Encounter for screening for malignant neoplasm of colon (principal); K59.01 Slow transit constipation; R14.0 Abdominal distension (gaseous) | CPT/HCPCS: 99212 ==

== ENCOUNTER 2024-05-24 07:17 | Day surgery (SDC) | payer MEDICARE, MEDICAID, SELFPAY ==
[2024-05-24 07:26] VITALS: BMI 28.4
[2024-05-24 07:42] VITALS: BP 121/80; PULSE 77; RESP 18; TEMP 36.2; O2SAT 98
[2024-05-24] MEDS: Lactated Ringers 1,000 ML 100 ML IVCONT (07:57)
--- NOTE | 2024-05-24 08:19 | HO.ANESPROP2 ---
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) Obesity due to excess calories (Acute) Encounter for general adult medical examination with abnormal findings (Acute) Constipation by delayed colonic transit (Acute) Encounter for routine gynecological examination (Acute) Skin cancer screening (Acute) Constipation (Acute) Essential hypertension (Acute) Impacted cerumen, right ear (Acute) Hyperthyroidism (Acute) Hospital discharge follow-up (Acute) Ear pain, right (Acute) Complicated migraine (Acute) Environmental allergies (Acute) Panic anxiety syndrome (Acute) Lipid disorder (Acute) Family History Family history of problems with anesthesia: No Surgical History Surgical History S/P section H/O colonoscopy History of Problems with Anesthesia: No Social History Social History Housing: House Are you a primary animal care giver to a significant other at home: No Do you presently have visiting nurse or other home services: No Alcohol intake: never Patient Tobacco Use Status: Never used Tobacco e-Cigarette/Vaping Use: Never Used Second Hand Smoke Exposure: Yes Use of substances other than those prescribed or required for medical reasons: No Have you been hit, kicked, punched, or otherwise hurt by someone within the past year? If so, by whom?: No Advance Directives: No Advance Directives Information Provided: Yes Recently lost weight without trying: No Nutrition Risks: No Nutritional Risk Patient : No Current occupational status: unemployed Cognitive needs: No Hearing needs: No Vision needs: No Meds Allergies Allergy/AdvReac Type Severity Reaction Status Date / Time gabapentin Allergy Unknown rash Verified 01/07/24 11:19 Active Medications: Current Medications Lactated Ringer's (Lr) 1,000 mls @ 100 mls/hr IVCONT .Q10H PALLAVI Last Admin: 05/24/24 07:57 Dose: 100 mls/hr Exam Height,Weight and Vital Signs: Height 5 ft 5 in Weight 77.337 kg Last Vital Signs Temp 97.1 F 05/24/24 07:42 Pulse 77 05/24/24 07:42 Resp 18 05/24/24 07:42 BP 121/80 05/24/24 07:42 Pulse Ox 98 05/24/24 07:42 O2 Del Method Room Air 05/24/24 07:42 Airway Mallampati Class: II TM Dist: <=3cm Neck ROM: Full Loose/Missing/Broken Teeth: No Heart: ok Lungs: ok Assessment and Plan Assessment Anesthesia Assessment: Anesthesia Plan Discussed Final Anesthetic Review Family History of Problems with Anesthesia: No History of Problems with Anesthesia: No NPO: Yes ASA Class: II Final Preanesthetic Review: No Changes in Pt Med Stat, Meds/Allgs Chart Reviewed, Consent Obtained/Reviewed and Anes Risks/Benef Reviewed Patient Risk: Low Procedure Risk: Low Anesthetic Plan Anesthetic Plan: MAC: and Agree w/ Assess. and Plan Disposition: Standard PACU
--- NOTE | 2024-05-24 08:41 | P.HPSUR_ITS ---
Pre-Procedural Eval Section A - 24 Hr Update-Section A only Date of Service: 05/24/24 Section B - Complete if H&P > 30 days Chief Complaint: Other constipation Relevant Family History (Specify if Yes): No Relevant Social History: None Present Medications: see Short Stay Collaborative assessment Medical History: Significant History (HLP, HTN, obesity, migraine, anxiety) History of Previous Operations: Relevant previous surgery/procedure and date(s) (S/P section H/O colonoscopy) Allergies: Allergies Allergy/AdvReac Type Severity Reaction Status Date / Time gabapentin Allergy Unknown rash Verified 01/07/24 11:19 Review of Systems Sugical H&P ROS: Negative: Constitution, Cardiovascular, Respiratory, Neurological, Psychiatric, Hem-Onc, Allergic/Immunologic, Gastrointestinal, Genitourinary, Musculoskeletal, Integumentary, Endocrine and Eyes/Ears/ Nose/Throat Exam Surgical H&P Exam: Normal: HEENT, Normal: Heart, Normal: Lungs, Normal: Extremities, Normal: Abdomen, Normal: Skin and Normal: Neurological Plan Diagnosis/Plan: Unchanged I have reviewed the history and physical and performed a pertinent physical examination on my patient. No changes have occurred unless specified. Time Spent With Patient Time: Total time managing care of this patient today ____ minutes.
--- NOTE | 2024-05-24 09:06 | P.OPN-COLO_ITS ---
Colonoscopy Operative Note Operative Note Date of Service: 05/24/24 Narrative: Operative Information Procedure Description: Colonoscopy Indication: screening Anesthesia: MAC COLONOSCOPY Instrument: Olympus variable stiffness pediatric scope 190L Colonoscopy Monitoring: Vital signs and clinical assessment, continuous EKG monitoring, Pulse oximetry, Carbon Dioxide monitoring and blood pressure monitoring were done throughout the procedure. Colon withdrawal time was 9 minutes. Procedure: The patient was placed in the left lateral decubitis position and pre-procedure medications were administered. After a digital rectal examination of the ano-rectum, the video colonoscope was inserted into the rectum and advanced through the colon to the cecum/TI. The colonoscope was slowly withdrawn in a retrograde panoramic fashion and the colon mucosa was carefully examined including a retroflexed view of the rectum. Findings and interventions are described below. Procedure Difficulty: difficult due to tortuous and redundant colon, left colon lift needed to get to cecum Findings: Terminal Ileum-not intubated Cecum:normal Ascending Colon: 10 mm sessile polyp removed with cold snare Transverse Colon -normal Descending Colon:normal Sigmoid Colon: normal Rectum: Retroflexion with small internal hemorrhoids seen, grade I Anorectum - normal Intervention: cold snare Colon preparation: [place] Bowel Preparation Scale Right colon; 1-2 Transverse colon: 2 Left colon; 1-2 (0 = Unprepared colon segment with mucosa not seen due to solid stool that cannot be cleared. 1 = Portion of mucosa of the colon segment seen, but other areas of the colon segment not well seen due to staining, residual stool and/or opaque liquid. 2 = Minor amount of residual staining, small fragments of stool and/or opaque liquid, but mucosa of colon segment seen well. 3 = Entire mucosa of colon segment seen well with no residual staining, small fragments of stool or opaque liquid) Impression and Post Procedure Diagnosis: colon polyp internal hemorrhoids Plan: High fiber diet leaflet Avoid straining at stool, epsom salts and sitz bath, anusol supps or cream Repeat Colonoscopy in 1-2 years due to areas of fair prep or earlier if clinically indicated --next time use adult scope Above findings were reviewed with the patient and relevant handouts were provided if indicated.
[2024-05-24 09:13] VITALS: BP 113/74; PULSE 82; RESP 20; TEMP 36.2; O2SAT 96
[2024-05-24 09:28] VITALS: BP 109/76; PULSE 68; RESP 16; O2SAT 100
== END 2024-05-24 09:59 | disposition home or self-care (01) ==
PROVIDERS: PCP Internal Medicine; Visit Provider Internal Medicine Gastroenterology
PROC: 0DJD8ZZ Inspection of Lower Intestinal Tract, Via Natural or Artificial Opening Endoscopic (ICD-10-PCS; CPT 45378; principal; 2024-05-24 08:30)
DX: Z12.11 Encounter for screening for malignant neoplasm of colon (principal); D12.2 Benign neoplasm of ascending colon; K59.01 Slow transit constipation; R14.0 Abdominal distension (gaseous); K64.0 First degree hemorrhoids; Q43.8 Other specified congenital malformations of intestine; I10 Essential (primary) hypertension; E78.5 Hyperlipidemia, unspecified; Z79.899 Other long term (current) drug therapy; Z56.0 Unemployment, unspecified; Z88.8 Allergy status to other drugs, medicaments and biological substances
CPT/HCPCS: 45385; 88305; J2704

== ENCOUNTER → 2024-05-24 07:17 | Outpatient (BNV) | payer MEDICARE, MEDICAID, SELFPAY | PROVIDERS: PCP Internal Medicine; Visit Provider Internal Medicine Gastroenterology | DX: Z12.11 Encounter for screening for malignant neoplasm of colon (principal); K63.5 Polyp of colon; K64.8 Other hemorrhoids | CPT/HCPCS: 45385 ==

== ENCOUNTER 2024-06-13 10:54 | Outpatient (AMB) | payer MEDICARE, MEDICAID, SELFPAY ==
--- NOTE | 2024-06-13 10:56 | MHC.OFFVIS ---
Vital Signs 06/13/24 10:57 Height 5 ft 5 in Weight 172 lb 6.424 oz BMI 28.7 BP 138/70 Blood Pressure Location Lt brachial Position Sitting Pulse 76 Pulse Source Pulse Oximeter Pulse Oximetry (%) 98 Oxygen Delivery Method Room Air Intake Visit Reasons: S/P Elmer; Dr. Castro Intake Note: Marbella presents in office today for a scheduled s/p FUV. CC; Pt denies any complications or new sx post op. Pt is here to discuss the findings of their procedure. Pt reports that they need a fill of their simethicone. The pharmacy keeps stating that they do not have the prescription on file. [employer] Required: No Accompanied by: Daughter Allergies gabapentin Allergy (Unknown, Verified 06/13/24 10:58) rash HPI HPI S/P Elmer; Dr. Castro: Details: LAST VISIT: Constipation Postprandial abdominal bloating Screen for colon cancer Plan Patient will be book for colonoscopy. Continue taking Linzess daily. Patient was encouraged to increase fluid intake and activity to promote better bowel motility. Patient denies any issues with anesthesia in the past. No history of sleep apnea. Not on any anticoagulation medication. Patient denies any cardiac or respiratory symptoms. What to expect before during and after procedure discussed with patient. Patient requesting simethicone for bloating. Continue low FODMAP diet. Discussed with patient the importance of good bowel prep as well as clear liquid diet. I will see her after the procedure, sooner on as needed basis. Patient is agreeable to this plan and verbalizes understanding of instructions. She was given the opportunity to ask questions and all questions answered. ? Thank you for allowing me to participate in her care Medications Refilled simethicone 125 mg PO BID-QID PRN 120 caps 3RF abdominal distention COLONOSCOPY: Findings: Terminal Ileum-not intubated Cecum:normal Ascending Colon: 10 mm sessile polyp removed with cold snare Transverse Colon -normal Descending Colon:normal Sigmoid Colon: normal Rectum: Retroflexion with small internal hemorrhoids seen, grade I Anorectum - normal Intervention: cold snare Colon preparation: [place] Bowel Preparation Scale Right colon; 1-2 Transverse colon: 2 Left colon; 1-2 (0 = Unprepared colon segment with mucosa not seen due to solid stool that cannot be cleared. 1 = Portion of mucosa of the colon segment seen, but other areas of the colon segment not well seen due to staining, residual stool and/or opaque liquid. 2 = Minor amount of residual staining, small fragments of stool and/or opaque liquid, but mucosa of colon segment seen well. 3 = Entire mucosa of colon segment seen well with no residual staining, small fragments of stool or opaque liquid) Impression and Post Procedure Diagnosis: colon polyp internal hemorrhoids Plan: High fiber diet leaflet Avoid straining at stool, epsom salts and sitz bath, anusol supps or cream Repeat Colonoscopy in 1-2 years due to areas of fair prep or earlier if clinically indicated --next time use adult scope PATHOLOGY: Diagnosis Colon, ascending, polypectomy: Fragments of tubular adenoma; negative for high-grade dysplasia or carcinoma. TODAY'S VISIT Patient is here today for follow-up and to discuss colonoscopy results. Patient denies any ill effects from the prep, anesthesia or procedure itself. Patient had suboptimal prep. One tubular adenoma without high-grade dysplasia or carcinoma found in ascending colon patient reports that she was taking Linzess 145 mcg, however reports that she feels like this was not enough for her. She would still be constipated pharmacy did not fill the last refill for her. Will send new script today. Patient denies any melena, hematochezia. Patient denies any other GI concerning symptoms today. [facility] Medical History (Updated 06/23/24 @ 19:12 by Gemini Bryant [facility]) Tubular adenoma of colon Surgical History S/P section H/O colonoscopy Social History Housing: House Are you a primary wild animal caretaker to a significant other at home: No Do you presently have visiting nurse or other home services: No Alcohol intake: never Patient Tobacco Use Status: Never used Tobacco e-Cigarette/Vaping Use: Never Used Second Hand Smoke Exposure: Yes Current occupational status: unemployed Cognitive needs: No Hearing needs: No Vision needs: No Review of Systems Const Denies weight gain and Denies weight loss ENT Reports no additional complaints, Denies dysphagia and Denies odynophagia Card Reports no additional complaints Resp Reports no additional complaints GI Denies abdominal pain, Denies belching, Denies melena, Reports bloating (Occasional), Reports constipation, Denies dysphagia, Denies excessive flatus, Denies dyspepsia, Denies heartburn, Denies diarrhea, Denies loose stools, Denies nausea, Denies odynophagia and Denies vomiting Reports no additional complaints Musc Reports no additional complaints Neuro Reports no additional complaints Psych Reports no additional complaints Endo Reports no additional complaints Physical Exam Vital Signs: Last Vital Signs Pulse 76 06/13/24 10:57 BP 138/70 06/13/24 10:57 Pulse Ox 98 06/13/24 10:57 Oxygen Delivery Method Room Air 06/13/24 10:57 BMI result Body Mass Index 28.7 Const General: healthy appearing, no acute distress and well developed Nutritional Appearance: well nourished Orientation/consciousness: patient oriented x3 Resp Effort & Inspection: normal respiratory effort, able to speak in complete sentences, no tracheal deviation and symmetric chest movement Auscultation: clear to auscultation bilaterally Cardio Rate: regular rate GI Inspection: Yes normal to inspection and No distended Palpation (GI): Soft to palpation, not firm, nontender and No hepatosplenomegaly present Auscultation: normal bowel sounds General: Yes no CVA tenderness Back/Spine/Pelvis Back: no CVA tenderness Skin General skin exam: elasticity normal, turgor normal and dry skin Neuro General: patient oriented x3 Psych Appearance: grossly normal Mental Status: mental status grossly normal Assessment & Plan Assessment & Plan (1) Constipation: Code(s): K59.00 - Constipation, unspecified Category: Medical Qualifiers: Constipation type: slow transit constipation Qualified Code(s): K59.01 - Slow transit constipation (2) Tubular adenoma of colon: Code(s): D12.6 - Benign neoplasm of colon, unspecified Category: Medical (3) Postprandial abdominal bloating: Code(s): R14.0 - Abdominal distension (gaseous) (4) Status post colonoscopy: Code(s): Z98.890 - Other specified postprocedural states Plan Patient will increase Linzess to 290 mcg daily. Increase fluid intake and activity to promote better bowel motility. Colonoscopy results discussed with patient. One tubular adenoma found, however patient had suboptimal prep and will need to return for colonoscopy screening in 1-2 years. Patient will return in 3 months to re-evaluate the treatment. She is agreeable to this plan and verbalizes understanding of instructions. She was given the opportunity to ask questions and all questions answered. Thank you for allowing me to participate in her care Medications: New linaclotide (Linzess) 290 mcg PO QAM 30 caps 4RF K59.00 - Constipation, unspecified Discontinued linaclotide Discontinued Reason: Doctor's Order 145 mcg PO DAILY 90 caps 2RF Coding Level of Care Code Est Pt Level 3 (70644) Diagnoses Slow transit constipation K59.01 Constipation type: slow transit constipation Tubular adenoma of colon D12.6 Postprandial abdominal bloating R14.0 Status post colonoscopy Z98.890 Time Spent (min) 30 Comment 20 minutes spent with patient and additional 10 minutes spent reviewing her records
[2024-06-13 10:57] VITALS: BP 138/70; PULSE 76; O2SAT 98; BMI 28.7
== END 2024-06-13 11:38 | disposition home or self-care (01) ==
PROVIDERS: PCP Internal Medicine; Visit Provider Nurse Practitioner Family
DX: K59.01 Slow transit constipation (principal); D12.6 Benign neoplasm of colon, unspecified; R14.0 Abdominal distension (gaseous); Z98.890 Other specified postprocedural states
CPT/HCPCS: 99213

== ENCOUNTER → 2024-06-13 10:54 | Outpatient (BNVA) | payer MEDICARE, MEDICAID, SELFPAY | PROVIDERS: PCP Internal Medicine; Visit Provider Nurse Practitioner Family | DX: K59.01 Slow transit constipation (principal); D12.6 Benign neoplasm of colon, unspecified; R14.0 Abdominal distension (gaseous); Z98.890 Other specified postprocedural states | CPT/HCPCS: 99212 ==

== ENCOUNTER → 2024-07-14 08:57 | Outpatient (BNVA) | payer MEDICARE, MEDICAID, SELFPAY | PROVIDERS: PCP Internal Medicine | DX: I10 Essential (primary) hypertension (principal); E78.9 Disorder of lipoprotein metabolism, unspecified; F41.0 Panic disorder [episodic paroxysmal anxiety]; G43.109 Migraine with aura, not intractable, without status migrainosus; R00.2 Palpitations; Z91.09 Other allergy status, other than to drugs and biological substances | CPT/HCPCS: 99212 ==

== ENCOUNTER 2024-07-14 12:26 | Outpatient (AMB) | payer MEDICARE, MEDICAID, SELFPAY ==
[2024-07-14 12:33] VITALS: BP 136/78; PULSE 67; O2SAT 98; BMI 28.8
--- NOTE | 2024-07-14 12:33 | A.OFFPC_ITS ---
Vital Signs 07/14/24 12:33 Height 5 ft 5 in Weight 173 lb 2 oz BMI 28.8 BP 136/78 Blood Pressure Location Lt brachial Position Sitting Pulse 67 Pulse Source Pulse Oximeter Pulse Oximetry (%) 98 Oxygen Delivery Method Room Air Intake Visit Reasons: High b/pressure, headaches 155 over 97 Allergies gabapentin Allergy (Unknown, Verified 07/14/24 12:35) rash Medication List - Last Reconciled 07/14/24 by Anuj Schmid MD atorvastatin 40 mg PO DAILY 90 days bisacodyl (Dulcolax (bisacodyl)) 20 mg (4 x 5 mg) PO ONCE 1 day cetirizine (Zyrtec) 10 mg PO DAILY PRN 90 days enalapril maleate 5 mg PO DAILY escitalopram oxalate (Lexapro) 10 mg PO DAILY 30 days linaclotide (Linzess) 290 mcg PO QAM polyethylene glycol 3350 (Miralax) 238 grams PO ONCE 1 day simethicone 125 mg PO BID-QID PRN Tobacco use date assessed: 07/14/24 Dental Screening Dental Screen Date: 07/14/24 Did you have a dental visit in the last 12 months?: Yes Did you have a dental problem in the last 6 months where you did not have access to dental care?: No Was dental information given to patient?: Patient has dentist HPI High b/pressure, headaches 155 over 97 HPI Details Patient is 62-year-old female who was last seen September of this year and did not come in for follow-up after that Patient has a history of panic anxiety syndrome, palpitations, hypertension, noncompliance with medical advice, lipid disorder, constipation, allergies Came in today with a chief complaint of fluctuating blood pressure She is supposed to be on enalapril 5 mg for blood pressure management Patient is also due for labs Tells me that she has been drinking about 6 cups of coffee every day And is taking ibuprofen for foot pain, and using extra salt We had a detailed discussion she needs to wean herself off so much caffeine gradually And stopped adding extra salt in diet If blood pressure is elevated she may take 2 tablets of enalapril rather than 1 She is also taking atorvastatin for lipid controlled And Lexapro 10 mg as needed for anxiety She tells me that it works that way Constipation is stable and allergies are stable Patient will return next week for follow-up appointment for blood pressure and to go over labs [facility] Medical History Tubular adenoma of colon Surgical History S/P section H/O colonoscopy Social History Housing: House Are you a primary director of medicare to a significant other at home: No Do you presently have visiting nurse or other home services: No Alcohol intake: never Patient Tobacco Use Status: Never used Tobacco e-Cigarette/Vaping Use: Never Used Second Hand Smoke Exposure: Yes Current occupational status: unemployed Cognitive needs: No Hearing needs: No Vision needs: No Questionnaire PHQ-9 Over the last 2 weeks, how often have you been bothered by any of the following problems? 1. Little interest or pleasure in doing things: not at all 2. Feeling down, depressed, or hopeless: not at all 3. Trouble falling or staying asleep, or sleeping too much: not at all 4. Feeling tired or having little energy: not at all 5. Poor appetite or overeating: not at all 6. Feeling bad about yourself - or that you are a failure or have let yourself or your family down: not at all 7. Trouble concentrating on things, such as reading the newspaper or watching television: not at all 8. Moving or speaking so slowly that other people could have noticed. Or the opposite - being so fidgety or restless that you have been moving around a lot more than usual: not at all 9. Thoughts that you would be better off or of hurting yourself in some way: not at all Total score: 0 Depression Screening Interpretation: Negative Depression Screening Done: Yes 09859 - PHQ-9 Billing: Yes Source: Developed by Drs. Yaron Olmstead, Amy Spain, Sandeep Bennett and colleagues, with an educational inder from [employer]. Thrive Questionnaire Date Thrive assessed: 07/14/24 I am a: Patient What is your living situation today?: I have a steady place to live Within the past 12 months, did the food you bought not last and you didn't have the money to get more?: Never true Within the past 12 months, did you worry whether your food would run out before you got money to buy more?: Never true Do you have trouble paying for medicines?: No Do you have trouble getting transportation to medical appointments?: No Do you have trouble paying your heating and electricity bill?: No Do you have trouble taking care of your child, family member or friend?: No Do you have trouble with day-to-day activities such as bathing, preparing meals, shopping, managing finances, etc.?: No Are you currently unemployed and looking for a job?: No Are you interested in more education?: No Please select the resources that you would like help with: None Currently or been in a relationship where the following occur: No concerns reported THRIVE Score: 0 AUDIT C Alcohol Use Questionnaire (AUDIT-C) 1. How often do you have a drink containing alcohol?: Never 3. How often do you have six or more drinks on one occasion?: Never Total Score: 0 Score Reviewed/Action Taken: Yes SHANKAR-7 AMB Questionnaire SHANKAR-7 Date SHANKAR - 7 assessed: 10/08/23 Source: Developed by Drs. Yaron Olmstead, Amy Spain, Sandeep Bennett and colleagues, with an educational inder from [employer]. Review of Systems Const Denies chills and Denies fever(s) ENT Denies epistaxis and Denies nasal discharge Card Denies chest pain Resp Denies chest congestion, Denies cough and Denies hemoptysis GI Denies diarrhea and Denies nausea Skin/Breast Denies rash Neuro Reports no additional complaints Psych Reports no additional complaints Endo Reports no additional complaints Physical exam (Primary Care) Vital Signs: Last Vital Signs Pulse 67 07/14/24 12:33 BP 136/78 07/14/24 12:33 Pulse Ox 98 07/14/24 12:33 Oxygen Delivery Method Room Air 07/14/24 12:33 BMI result Body Mass Index 28.8 Tobacco/Smoking Status: Tobacco use Status Tobacco use date assessed 07/20/23 07/14/24 08:55 Patient Tobacco Use Status Never used Tobacco 07/14/24 08:55 e-Cigarette/Vaping Use Never Used 07/14/24 08:55 Depression Screening Interpretation: Negative Thrive Assessment: Date of Thrive Assessment Date Thrive assessed 07/14/24 07/14/24 12:27 Currently or been in a relationship where the following occur: No concerns reported Const General: cooperative, comfortable and no acute distress Orientation/consciousness: patient oriented x3 HENMT Head: Yes normocephalic Eyes General: appearance normal, both eyes and all related structures Neck Neck: Yes supple Resp Effort & Inspection: normal respiratory effort, no cough and no stridor Cardio Rhythm: regular rhythm Heart sounds: S1 normal heart sound present and S2 normal heart sound present Skin General skin exam: turgor normal Neuro General: patient oriented x3, tone normal and moves all extremities Extrem Right lower extremity: no edema Left lower extremity: no edema Coding Level of Care Code Est Pt Level 4 (85836) Complex EM visit Add On G2211 Diagnoses Essential hypertension I10 Lipid disorder E78.9 Panic anxiety syndrome F41.0 Environmental allergies Z91.09 Complicated migraine G43.109 Palpitations R00.2 Assessment & Plan Assessment & Plan (1) Essential hypertension: Code(s): I10 - Essential (primary) hypertension Category: Medical (2) Lipid disorder: Code(s): E78.9 - Disorder of lipoprotein metabolism, unspecified Category: Medical (3) Panic anxiety syndrome: Code(s): F41.0 - Panic disorder [episodic paroxysmal anxiety] Category: Medical (4) Environmental allergies: Code(s): Z91.09 - Other allergy status, other than to drugs and biological substances Category: Medical (5) Complicated migraine: Code(s): G43.109 - Migraine with aura, not intractable, without status migrainosus Category: Medical (6) Palpitations: Code(s): R00.2 - Palpitations Category: Medical Plan Patient is 62-year-old female who was last seen September of this year and did not come in for follow-up after that Patient has a history of panic anxiety syndrome, palpitations, hypertension, noncompliance with medical advice, lipid disorder, constipation, allergies Came in today with a chief complaint of fluctuating blood pressure She is supposed to be on enalapril 5 mg for blood pressure management Patient is also due for labs Tells me that she has been drinking about 6 cups of coffee every day And is taking ibuprofen for foot pain, and using extra salt We had a detailed discussion she needs to wean herself off so much caffeine gradually And stopped adding extra salt in diet If blood pressure is elevated she may take 2 tablets of enalapril rather than 1 She is also taking atorvastatin for lipid controlled And Lexapro 10 mg as needed for anxiety She tells me that it works that way Constipation is stable and allergies are stable Patient will return next week for follow-up appointment for blood pressure and to go over labs Orders: Orders Comprehensive Met. Panel Today E78.9 - Disorder of lipoprotein metabolism, unspecified, F41.0 - Panic disorder [episodic paroxysmal anxiety], I10 - Essential (primary) hypertension, Z91.09 - Other allergy status, other than to drugs and biological substances LDL Cholesterol Direct Today E78.9 - Disorder of lipoprotein metabolism, unspecified, F41.0 - Panic disorder [episodic paroxysmal anxiety], I10 - Essential (primary) hypertension, Z91.09 - Other allergy status, other than to drugs and biological substances Complete Blood Count Auto Diff Today E78.9 - Disorder of lipoprotein metabolism, unspecified, F41.0 - Panic disorder [episodic paroxysmal anxiety], I10 - Essential (primary) hypertension, Z91.09 - Other allergy status, other than to drugs and biological substances TSH reflex Free T4 Today E78.9 - Disorder of lipoprotein metabolism, unspecified, F41.0 - Panic disorder [episodic paroxysmal anxiety], I10 - Essential (primary) hypertension, Z91.09 - Other allergy status, other than to drugs and biological substances
== END 2024-07-14 12:49 | disposition home or self-care (01) ==
PROVIDERS: PCP Internal Medicine; Visit Provider Internal Medicine
DX: I10 Essential (primary) hypertension (principal); E78.9 Disorder of lipoprotein metabolism, unspecified; F41.0 Panic disorder [episodic paroxysmal anxiety]; Z91.09 Other allergy status, other than to drugs and biological substances; G43.109 Migraine with aura, not intractable, without status migrainosus; R00.2 Palpitations

== ENCOUNTER 2024-07-14 12:49 | Outpatient (REF) | payer MEDICARE, MEDICAID, SELFPAY ==
[2024-07-14 16:21] LABS: MANUAL DIFF FLAG NO
[2024-07-14 16:33] LABS: Basophils Absolute Auto 0.1 X10*3/uL (0.0-0.2); Basophils Percent Auto 0.6 % (0-2); Eosinophils Absolute Auto 0.1 X10*3/uL (0.0-0.4); Eosinophils Percent Auto 1.6 % (0-4); Hematocrit 40.6 % (37.0-47.0); Hemoglobin 12.9 g/dl (12.0-16.0); Imm Gran Abs Auto 0.02 X10*3/uL (0.00-0.03); Imm Gran Pct Auto 0.3 % (0.0-0.4); Lymphocytes Absolute Auto 2.7 X10*3/uL (1.2-4.9); Lymphocytes Percent Auto 34.6 % (20-40); Mean Corpuscular HGB Conc 31.8 g/dl (31.0-35.0); Mean Corpuscular Hemoglobin 28.7 pg (27.0-33.0); Mean Corpuscular Volume 90.2 fL (80.0-98.0); Mean Platelet Volume 11.7 fL (9.4-12.3); Monocytes Absolute Auto 0.7 X10*3/uL (0.1-1.2); Monocytes Percent Auto 8.6 % (2-11); Neutrophils Absolute Auto 4.3 x10*3/uL (2.0-8.3); Neutrophils Percent Auto 54.3 % (45-73); Platelet Count 256 X10*3/uL (160-400); Red Cell Distribution Width 14.4 % (11.0-16.0); White Blood Count 7.9 X10*3/uL (4.8-10.8)
[2024-07-14 17:06] LABS: Alanine Aminotransferase 16 U/L (0-31); Albumin Level 4.1 g/dL (3.5-5.0); Alkaline Phosphatase 90 U/L (39-117); Anion Gap 10 (12-20); Aspartate Amino Transferase 17 U/L (5-31); Bilirubin Total 0.3 mg/dL (0.0-1.0); Blood Urea Nitrogen 12 mg/dL (9-16); Calcium 9.9 mg/dL (8.4-10.2); Carbon Dioxide 28 mmol/L (22-29); Chloride 109 mmol/L (96-108); Estimated Glomerular Filt Rate > 60; Glucose Random 84 mg/dL (60-115); Potassium 4.4 mmol/L (3.3-5.1); Sodium 143 mmol/L (135-145); Total Protein 7.6 g/dL (6.5-8.0)
[2024-07-14 17:09] LABS: TSH reflex Free T4 1.06 uIU/mL (0.32-4.0)
[2024-07-15 14:53] LABS: LDL Cholesterol Direct 175 mg/dL (<100)
== END 2024-07-14 12:50 | disposition home or self-care (01) ==
LOC: HO.HMGCLDS 12:49
PROVIDERS: PCP Internal Medicine; Visit Provider Internal Medicine
DX: I10 Essential (primary) hypertension (principal); E78.9 Disorder of lipoprotein metabolism, unspecified; F41.0 Panic disorder [episodic paroxysmal anxiety]; G43.109 Migraine with aura, not intractable, without status migrainosus; R00.2 Palpitations; Z91.09 Other allergy status, other than to drugs and biological substances
CPT/HCPCS: 36415; 80053; 83721; 84443; 85025; 96127; 99212

== ENCOUNTER 2024-07-18 15:13 | Outpatient (AMB) | payer MEDICARE, MEDICAID, SELFPAY ==
[2024-07-18 15:16] VITALS: BP 124/90; PULSE 85; O2SAT 98; BMI 28.5
--- NOTE | 2024-07-18 15:16 | A.OFFPC_ITS ---
Vital Signs 07/18/24 15:16 Height 5 ft 5 in Weight 171 lb 6 oz BMI 28.5 BP 124/90 H Blood Pressure Location Lt brachial Position Sitting Pulse 85 Pulse Source Pulse Oximeter Pulse Oximetry (%) 98 Oxygen Delivery Method Room Air Intake Visit Reasons: bp & f/up labs Allergies gabapentin Allergy (Unknown, Verified 07/18/24 15:24) rash Medication List - Last Reconciled 07/18/24 by Anuj Schmid MD atorvastatin 40 mg PO DAILY 90 days bisacodyl (Dulcolax (bisacodyl)) 20 mg (4 x 5 mg) PO ONCE 1 day cetirizine (Zyrtec) 10 mg PO DAILY PRN 90 days enalapril maleate 5 mg PO DAILY escitalopram oxalate (Lexapro) 10 mg PO DAILY 30 days linaclotide (Linzess) 290 mcg PO QAM polyethylene glycol 3350 (Miralax) 238 grams PO ONCE 1 day simethicone 125 mg PO BID-QID PRN Tobacco use date assessed: 07/18/24 Dental Screening Dental Screen Date: 07/18/24 Did you have a dental visit in the last 12 months?: Yes Did you have a dental problem in the last 6 months where you did not have access to dental care?: No Was dental information given to patient?: Patient has dentist HPI bp & f/up labs HPI Details Patient is 63-year-old female came in today for her follow-up appointment Blood pressure is stable, diastolic blood pressure is still 90 Patient is taking enalapril 5 mg Her LDL came back at 175, she is supposed to be on simvastatin 40 mg which she is not taking I have sent a refill for the patient She is no longer taking Lexapro which I have removed from her medication list Allergies are stable refill sent Follow-up 4 months [facility] Medical History Tubular adenoma of colon Surgical History S/P section H/O colonoscopy Social History Housing: House Are you a primary family day carer to a significant other at home: No Do you presently have visiting nurse or other home services: No Alcohol intake: never Patient Tobacco Use Status: Never used Tobacco e-Cigarette/Vaping Use: Never Used Second Hand Smoke Exposure: Yes Current occupational status: unemployed Cognitive needs: No Hearing needs: No Vision needs: No Questionnaire Thrive Questionnaire Date Thrive assessed: 07/14/24 I am a: Patient What is your living situation today?: I have a steady place to live THRIVE Score: 0 AUDIT C Alcohol Use Questionnaire (AUDIT-C) 1. How often do you have a drink containing alcohol?: Never 3. How often do you have six or more drinks on one occasion?: Never Total Score: 0 Score Reviewed/Action Taken: Yes SHANKAR-7 AMB Questionnaire SHANKAR-7 Date SHANKAR - 7 assessed: 10/08/23 Source: Developed by Drs. Yaron Olmstead, Amy Spain, Sandeep Bennett and colleagues, with an educational inder from [employer]. Review of Systems Const Denies chills and Denies fever(s) ENT Denies epistaxis and Denies nasal discharge Card Denies chest pain Resp Denies chest congestion, Denies cough and Denies hemoptysis GI Denies diarrhea and Denies nausea Skin/Breast Denies rash Neuro Reports no additional complaints Psych Reports no additional complaints Endo Reports no additional complaints Physical exam (Primary Care) Vital Signs: Last Vital Signs Pulse 85 07/18/24 15:16 BP 124/90 H 07/18/24 15:16 Pulse Ox 98 07/18/24 15:16 Oxygen Delivery Method Room Air 07/18/24 15:16 BMI result Body Mass Index 28.5 Tobacco/Smoking Status: Tobacco use Status Tobacco use date assessed 07/18/24 07/18/24 15:24 Patient Tobacco Use Status Never used Tobacco 07/18/24 15:16 e-Cigarette/Vaping Use Never Used 07/18/24 15:16 Thrive Assessment: Date of Thrive Assessment Date Thrive assessed 07/14/24 07/18/24 15:16 Const General: cooperative, comfortable and no acute distress Orientation/consciousness: patient oriented x3 HENMT Head: Yes normocephalic Eyes General: appearance normal, both eyes and all related structures Neck Neck: Yes supple Resp Effort & Inspection: normal respiratory effort, no cough and no stridor Cardio Rhythm: regular rhythm Heart sounds: S1 normal heart sound present and S2 normal heart sound present Skin General skin exam: turgor normal Neuro General: patient oriented x3, tone normal and moves all extremities Extrem Right lower extremity: no edema Left lower extremity: no edema Coding Level of Care Code Est Pt Level 3 (09798) Diagnoses Essential hypertension I10 Lipid disorder E78.9 Panic anxiety syndrome F41.0 Environmental allergies Z91.09 Complicated migraine G43.109 Palpitations R00.2 Assessment & Plan Assessment & Plan (1) Essential hypertension: Code(s): I10 - Essential (primary) hypertension Category: Medical (2) Lipid disorder: Code(s): E78.9 - Disorder of lipoprotein metabolism, unspecified Category: Medical (3) Panic anxiety syndrome: Code(s): F41.0 - Panic disorder [episodic paroxysmal anxiety] Category: Medical (4) Environmental allergies: Code(s): Z91.09 - Other allergy status, other than to drugs and biological substances Category: Medical (5) Complicated migraine: Code(s): G43.109 - Migraine with aura, not intractable, without status migrainosus Category: Medical (6) Palpitations: Code(s): R00.2 - Palpitations Category: Medical Plan Patient is 63-year-old female came in today for her follow-up appointment Blood pressure is stable, diastolic blood pressure is still 90 Patient is taking enalapril 5 mg Her LDL came back at 175, she is supposed to be on simvastatin 40 mg which she is not taking I have sent a refill for the patient She is no longer taking Lexapro which I have removed from her medication list Allergies are stable refill sent Follow-up 4 months Medications: Refilled cetirizine (Zyrtec) 10 mg PO DAILY PRN 90 caps 0RF allergy symptoms 90 days Z91.09 - Other allergy status, other than to drugs and biological substances atorvastatin 40 mg PO DAILY 90 tabs 1RF 90 days E78.9 - Disorder of lipoprotein metabolism, unspecified enalapril maleate 5 mg PO DAILY 90 tabs 1RF High blood pressure Discontinued escitalopram oxalate (Lexapro) Discontinued Reason: No Longer Medically Relevant 10 mg PO DAILY 30 days 30 tabs 0RF F41.0 - Panic disorder [episodic paroxysmal anxiety]
== END 2024-07-18 15:30 | disposition home or self-care (01) ==
PROVIDERS: PCP Internal Medicine; Visit Provider Internal Medicine
DX: I10 Essential (primary) hypertension (principal); E78.9 Disorder of lipoprotein metabolism, unspecified; F41.0 Panic disorder [episodic paroxysmal anxiety]; Z91.09 Other allergy status, other than to drugs and biological substances; G43.109 Migraine with aura, not intractable, without status migrainosus; R00.2 Palpitations

== ENCOUNTER → 2024-07-18 15:13 | Outpatient (BNVA) | payer MEDICARE, MEDICAID, SELFPAY | PROVIDERS: PCP Internal Medicine; Visit Provider Internal Medicine | DX: I10 Essential (primary) hypertension (principal); E78.9 Disorder of lipoprotein metabolism, unspecified; F41.0 Panic disorder [episodic paroxysmal anxiety]; G43.109 Migraine with aura, not intractable, without status migrainosus; R00.2 Palpitations; Z79.899 Other long term (current) drug therapy; Z91.09 Other allergy status, other than to drugs and biological substances | CPT/HCPCS: 99212 ==

== ENCOUNTER 2024-08-22 12:21 | Outpatient (AMB) | payer MEDICARE, MEDICAID, SELFPAY ==
[2024-08-22 12:29] VITALS: BP 126/88; PULSE 83; O2SAT 100; BMI 29.1
--- NOTE | 2024-08-22 12:29 | A.OFFPC_ITS ---
Vital Signs 08/22/24 12:29 Height 5 ft 5 in Weight 175 lb BMI 29.1 BP 126/88 Blood Pressure Location Lt brachial Position Sitting Pulse 83 Pulse Source Pulse Oximeter Pulse Oximetry (%) 100 Oxygen Delivery Method Room Air Intake Visit Reasons: Annual PE Allergies gabapentin Allergy (Unknown, Verified 08/22/24 12:33) rash Medication List - Last Reconciled 08/22/24 by Anuj Schmid MD atorvastatin 40 mg PO DAILY 90 days bisacodyl (Dulcolax (bisacodyl)) 20 mg (4 x 5 mg) PO ONCE 1 day cetirizine (Zyrtec) 10 mg PO DAILY PRN 90 days enalapril maleate 5 mg PO DAILY linaclotide (Linzess) 290 mcg PO QAM polyethylene glycol 3350 (Miralax) 238 grams PO ONCE 1 day simethicone 125 mg PO BID-QID PRN Tobacco use date assessed: 08/22/24 Dental Screening Dental Screen Date: 08/22/24 Did you have a dental visit in the last 12 months?: Yes Did you have a dental problem in the last 6 months where you did not have access to dental care?: No Was dental information given to patient?: Patient has dentist HPI Annual PE HPI Details Chief Complaint Routine examination and follow-up on previous health conditions. Health Maintenance - Mammography: Last done in July of last year; patient advised to schedule a repeat. - Pap smear: Patient has not had a recen t pap smear; advised to schedule one - Colonoscopy: Last conducted in April with follow-up required; repeat scheduled in 1-2 year - Vaccinations: Did not receive flu vacc ine; patient expressed disinterest. - Blood Tests: Most recent test in [facility] er showed high cholesterol, good liver enzymes, and kidney function; no anemia. Patient is to repeat blood tests in four months, ensuring to perform them before breakfast. Assessment and Plan 63-year-old female with history of hyper tension and hyperlipidemia presenting for a routine wellness visit and follow-up on recent screenings. The patient's hypercholesterolemia, as revealed in recent laboratory results, remains an ongoing concern given her current management with atorvastatin. She reports adherence to the prescribed therapeutic regimen and lifestyle modifications. T his visit includes a review of recent screenings, updates on her medication regimen, and planning for necessary future tests. Recommendations regarding pending health maintenance screenings, including mammography and Pap smear, The follow-up on her post-colonoscopy status is noted with plans for repeat assessment within the advised timeframe. 1. Due for OBGYN visit 2. Allergic Rhinitis Patient is using Zyrtec for symptomatic relief. Medication is to be continued as it is controlling symptoms effectively. 3. Hypertension The patient is on enalapril for hypertension management. No immediate concerns noted, and current medication regimen is to be maintained. Blood pressure monitoring to continue with routine follow-up. 4. Hyperlipidemia The patient is currently prescribed atorvastatin to manage her elevated cholesterol. Recent blood test results indicate high cholesterol levels, potentially due to inconsistent medication adherence. Continuation of atorvastatin is recommended with stress on adherence; cholesterol levels to be reassessed in four months. 5. Follow-Up Post-Colonoscopy Polyp Leo chan Patient underwent colonoscopy in April with polyp removal. A follow-up is advised in 6 months to 1 year according to standard post-polypectomy surveillance protocols. The patient is informed about the schedule for repeat colonoscopy. Patient Instructions - Continue atorvastatin and ensure regul ar adherence to manage cholesterol level. - Maintain current hypertension manageme nt with enalapril. - Continue using Zyrtec for allergic sym ptoms as needed. - Schedule and attend overdue mammograph y and Pap smear appointments. - Undergo blood tests in four months bef ore breakfast as instructed. - Schedule a repeat colonoscopy in 6 mon ths to 1 year following the previous polyp removal. - Discuss and reconsider receiving the f stephani vaccine as part of preventive health care. [facility] Medical History Tubular adenoma of colon Surgical History S/P section H/O colonoscopy Social History Housing: House Are you a primary rn progressive care unit to a significant other at home: No Do you presently have visiting nurse or other home services: No Alcohol intake: never Patient Tobacco Use Status: Never used Tobacco e-Cigarette/Vaping Use: Never Used Second Hand Smoke Exposure: Yes Current occupational status: unemployed Cognitive needs: No Hearing needs: No Vision needs: No Questionnaire Thrive Questionnaire Date Thrive assessed: 07/14/24 I am a: Patient What is your living situation today?: I have a steady place to live THRIVE Score: 0 SHANKAR-7 AMB Questionnaire SHANKAR-7 Date SHANKAR - 7 assessed: 10/08/23 Source: Developed by Drs. Yaron Olmstead, Amy Spain, Sandeep Bennett and colleagues, with an educational inder from [employer]. Review of Systems Const Denies chills, Denies fever(s) and Denies headache(s) Eyes Denies blurry vision ENT Denies headache(s), Denies nasal discharge, Denies nasal obstruction, Denies odynophagia and Denies sinus pain Card Denies chest pain at rest and Denies chest pain with activity Resp Denies cough and Denies hemoptysis GI Denies diarrhea, Denies odynophagia, Denies vomiting and Denies hematemesis Reports as per HPI Musc Denies abnormal gait Skin/Breast Reports as per HPI Neuro Denies Neuro-related abnormal movements, Denies Abnormal speech present, Denies abnormal gait, Denies headache(s) and Denies Sensory deficit (Neuro) Psych Denies mood swings and Denies paranoia Endo Reports as per HPI Chacorta/Lymph Reports as per HPI Aller/Immun Reports as per HPI Physical exam (Primary Care) Vital Signs: Last Vital Signs Pulse 83 08/22/24 12:29 BP 126/88 08/22/24 12:29 Pulse Ox 100 08/22/24 12:29 Oxygen Delivery Method Room Air 08/22/24 12:29 BMI result Body Mass Index 29.1 Tobacco/Smoking Status: Tobacco use Status Tobacco use date assessed 08/22/24 08/22/24 12:33 Patient Tobacco Use Status Never used Tobacco 08/22/24 12:33 e-Cigarette/Vaping Use Never Used 08/22/24 12:33 Thrive Assessment: Date of Thrive Assessment Date Thrive assessed 07/14/24 08/22/24 12:33 Const General: cooperative, comfortable and no acute distress Orientation/consciousness: patient oriented x3 HENMT Head: Yes normocephalic and Yes atraumatic Eyes General: appearance normal, both eyes and all related structures Pupils: Equal, round and reactive pupils present EOM: EOMs intact bilaterally Neck Neck: Yes supple and No lymphadenopathy Thyroid: Thyroid normal Lymphatic: no lymphadenopathy noted Chest Breast/axilla palpation: normal palpation of the breasts Resp Effort & Inspection: normal respiratory effort and able to speak in complete sentences Auscultation: clear to auscultation bilaterally Cardio Heart sounds: S1 normal heart sound present and S2 normal heart sound present GI Palpation (GI): Soft to palpation and nontender Auscultation: normal bowel sounds General: Yes no CVA tenderness Back/Spine/Pelvis Back: no CVA tenderness Skin General skin exam: elasticity normal and turgor normal Neuro General: patient oriented x3 and gait normal Cranial nerves: Yes Equal, round and reactive pupils present Speech: No Abnormal speech present Sensory Exam: No Sensory deficit (Neuro) Coordination: tandem gait normal and Romberg test negative Extrem General: Yes normal exam except as noted and No edema Coding Level of Care Code Est Pt Level 3 (39560) Est Pt Prev Care 40-64y(04400) Diagnoses Encounter for general adult medical examination with abnormal findings Z00.01 Lipid disorder E78.9 Environmental allergies Z91.09 Panic anxiety syndrome F41.0 Complicated migraine G43.109 Essential hypertension I10 Tubular adenoma of colon D12.6 Assessment & Plan Assessment & Plan (1) Encounter for general adult medical examination with abnormal findings: Code(s): Z00.01 - Encounter for general adult medical examination with abnormal findings Category: Medical (2) Lipid disorder: Code(s): E78.9 - Disorder of lipoprotein metabolism, unspecified Category: Medical (3) Environmental allergies: Code(s): Z91.09 - Other allergy status, other than to drugs and biological substances Category: Medical (4) Panic anxiety syndrome: Code(s): F41.0 - Panic disorder [episodic paroxysmal anxiety] Category: Medical (5) Complicated migraine: Code(s): G43.109 - Migraine with aura, not intractable, without status migrainosus Category: Medical (6) Essential hypertension: Code(s): I10 - Essential (primary) hypertension Category: Medical (7) Tubular adenoma of colon: Code(s): D12.6 - Benign neoplasm of colon, unspecified Category: Medical Plan Chief Complaint Routine examination and follow-up on previous health conditions. Health Maintenance - Mammography: Last done in July of last year; patient advised to schedule a repeat. - Pap smear: Patient has not had a recent pap smear; advised to schedule one - Colonoscopy: Last conducted in April with follow-up required; repeat scheduled in 1-2 year - Vaccinations: Did not receive flu vaccine; patient expressed disinterest. - Blood Tests: Most recent test in June showed high cholesterol, good liver enzymes, and kidney function; no anemia. Patient is to repeat blood tests in four months, ensuring to perform them before breakfast. Assessment and Plan 63-year-old female with history of hypertension and hyperlipidemia presenting for a routine wellness visit and follow-up on recent screenings. The patient's hypercholesterolemia, as revealed in recent laboratory results, remains an ongoing concern given her current management with atorvastatin. She reports adherence to the prescribed therapeutic regimen and lifestyle modifications. This visit includes a review of recent screenings, updates on her medication regimen, and planning for necessary future tests. Recommendations regarding pending health maintenance screenings, including mammography and Pap smear, The follow-up on her post-colonoscopy status is noted with plans for repeat assessment within the advised timeframe. 1. Due for OBGYN visit 2. Allergic Rhinitis Patient is using Zyrtec for symptomatic relief. Medication is to be continued as it is controlling symptoms effectively. 3. Hypertension The patient is on enalapril for hypertension management. No immediate concerns noted, and current medication regimen is to be maintained. Blood pressure monitoring to continue with routine follow-up. 4. Hyperlipidemia The patient is currently prescribed atorvastatin to manage her elevated cholesterol. Recent blood test results indicate high cholesterol levels, potentially due to inconsistent medication adherence. Continuation of atorvastatin is recommended with stress on adherence; cholesterol levels to be reassessed in four months. 5. Follow-Up Post-Colonoscopy Polyp Removal Patient underwent colonoscopy in April with polyp removal. A follow-up is advised in 6 months to 1 year according to standard post-polypectomy surveillance protocols. The patient is informed about the schedule for repeat colonoscopy. Patient Instructions - Continue atorvastatin and ensure regular adherence to manage cholesterol level. - Maintain current hypertension management with enalapril. - Continue using Zyrtec for allergic symptoms as needed. - Schedule and attend overdue mammography and Pap smear appointments. - Undergo blood tests in four months before breakfast as instructed. - Schedule a repeat colonoscopy in 6 months to 1 year following the previous polyp removal. - Discuss and reconsider receiving the flu vaccine as part of preventive health care. Orders: Orders Comprehensive [place]. Panel Fast 3 Months E78.9 - Disorder of lipoprotein metabolism, unspecified, Z91.09 - Other allergy status, other than to drugs and biological substances Lipid Panel 3 Months E78.9 - Disorder of lipoprotein metabolism, unspecified, Z91.09 - Other allergy status, other than to drugs and biological substances MM tomosynthesis screening BI Today Z12.31 - Encounter for screening mammogram for malignant neoplasm of breast Referrals [facility] Referral Z01.419 - Encounter for gynecological examination (general) (routine) without abnormal findings
== END 2024-08-22 12:46 | disposition home or self-care (01) ==
PROVIDERS: PCP Internal Medicine; Visit Provider Internal Medicine
DX: Z00.00 Encounter for general adult medical examination without abnormal findings (principal); E78.9 Disorder of lipoprotein metabolism, unspecified; Z91.09 Other allergy status, other than to drugs and biological substances; F41.0 Panic disorder [episodic paroxysmal anxiety]; G43.109 Migraine with aura, not intractable, without status migrainosus; I10 Essential (primary) hypertension; D12.6 Benign neoplasm of colon, unspecified

== ENCOUNTER → 2024-08-22 12:21 | Outpatient (BNVA) | payer MEDICARE, MEDICAID, SELFPAY | PROVIDERS: PCP Internal Medicine; Visit Provider Internal Medicine | DX: Z00.01 Encounter for general adult medical examination with abnormal findings (principal); E78.9 Disorder of lipoprotein metabolism, unspecified; F41.0 Panic disorder [episodic paroxysmal anxiety]; I10 Essential (primary) hypertension; D12.6 Benign neoplasm of colon, unspecified; G43.109 Migraine with aura, not intractable, without status migrainosus; Z91.09 Other allergy status, other than to drugs and biological substances | CPT/HCPCS: 99396 ==

== ENCOUNTER 2024-09-01 14:36 | Outpatient (REF) | payer MEDICARE, MEDICAID, SELFPAY ==
--- NOTE | ~2024-09-01 | MM_ITS ---
EXAMINATION: MM SCREENING DIGITAL BREAST TOMOSYNTHESIS, BILATERAL CLINICAL INFORMATION: Screening. Asymptomatic. COMPARISON: Mammography: Comparison is made with available priors TECHNIQUE: Digital breast mammography with tomosynthesis is performed in both the craniocaudal and mediolateral oblique views along with computer-aided detection (CAD). FINDINGS: The breasts are heterogeneously dense, which may obscure small masses (ACR BI-RADS breast composition Category c). There are no significant masses, abnormal calcifications, or other abnormalities. MM/MM tomosynthesis screening BI IMPRESSION: No mammographic evidence of malignancy. ASSESSMENT: BI-RADS BI-RADS 1 - Negative RECOMMENDATION: Routine annual mammography screening. 1 year F/U This examination should not preclude the clinical evaluation of a suspicious palpable abnormality. This patient's information was entered into a reminder system with a target due date for their next mammogram. Electronically signed by: Sol Sigala DO 09/07/2024 01:55 PM JANETT
== END 2024-09-01 14:37 | disposition home or self-care (01) ==
LOC: HO.MAMMO 14:36
PROVIDERS: PCP Internal Medicine; Visit Provider Internal Medicine
DX: Z12.31 Encounter for screening mammogram for malignant neoplasm of breast (principal)
CPT/HCPCS: 77063; 77067

== ENCOUNTER → 2024-09-01 15:15 | Outpatient (BNV) | payer MEDICARE, MEDICAID, SELFPAY | PROVIDERS: PCP Internal Medicine; Visit Provider Internal Medicine | DX: Z12.31 Encounter for screening mammogram for malignant neoplasm of breast (principal) | CPT/HCPCS: 77063; 77067 ==

== ENCOUNTER 2025-01-03 10:07 | Outpatient (REF) | payer MEDICARE, MEDICAID, SELFPAY ==
--- OUTSIDE RECORDS SUMMARY | 2025-01-03 12:04 | XMS_ITS | Clinical Summary ---
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
--- OUTSIDE RECORDS SUMMARY | 2025-01-03 12:04 | XMS_ITS | Clinical Summary ---
Author Organization [employer] Address [address] [facility] [address] [facility] [address] [place] [address] Care Team Providers Care District Agent Name Role Phone Unavailable Primary Care Provider [...] Mass Index - - Plan of Treatment Upcoming Encounters Date Type Department Care Team (Late st Contact Info) Description 01/04/2025 8:00 AM EDT Office Visit [facility] [address] [place] [address] Suzanna Swanson Health Maintenance Due Date Last Done Comments [...] calculus Necrosis of dental pulp Defective dental caodaism PERIODIC ORAL EVALUATION - ESTABLISHED PATIENT Routine 03/28/2024 8:00 AM EDT Dental calculus Necrosis of dental pulp Defective dental caodaism from Last 3 Months or Most Recently Relevant to Health Maintenance Insurance [facility] MEDICAID STAND ADULT
[2025-01-03 13:20] LABS: MANUAL DIFF FLAG NO
[2025-01-03 13:42] LABS: Basophils Percent Auto 0.7 % (0-2); Eosinophils Absolute Auto 0.1 X10*3/uL (0.0-0.4); Eosinophils Percent Auto 2.2 % (0-4); Hematocrit 39.9 % (37.0-47.0); Hemoglobin 12.7 g/dl (12.0-16.0); Imm Gran Abs Auto 0.01 X10*3/uL (0.00-0.03); Imm Gran Pct Auto 0.2 % (0.0-0.4); Lymphocytes Absolute Auto 2.3 X10*3/uL (1.2-4.9); Lymphocytes Percent Auto 39.4 % (20-40); Mean Corpuscular HGB Conc 31.8 g/dl (31.0-35.0); Mean Corpuscular Hemoglobin 28.3 pg (27.0-33.0); Mean Corpuscular Volume 89.1 fL (80.0-98.0); Mean Platelet Volume 11.6 fL (9.4-12.3); Monocytes Absolute Auto 0.4 X10*3/uL (0.1-1.2); Neutrophils Percent Auto 50.5 % (45-73); Platelet Count 253 X10*3/uL (160-400); Red Blood Count 4.48 X10*6/uL (4.20-5.50); Red Cell Distribution Width 14.6 % (11.0-16.0); White Blood Count 5.9 X10*3/uL (4.8-10.8)
[2025-01-03 14:14] LABS: Alanine Aminotransferase 21 U/L (0-31); Albumin Level 4.1 g/dL (3.5-5.0); Alkaline Phosphatase 75 U/L (39-117); Anion Gap 8 (12-20); Aspartate Amino Transferase 25 U/L (5-31); Bilirubin Total 0.3 mg/dL (0.0-1.0); Blood Urea Nitrogen 20 mg/dL (9-16); Calcium 9.5 mg/dL (8.4-10.2); Carbon Dioxide 29 mmol/L (22-29); Chloride 107 mmol/L (96-108); Estimated Glomerular Filt Rate > 60; Glucose Random 70 mg/dL (60-115); Potassium 4.3 mmol/L (3.3-5.1); Sodium 140 mmol/L (135-145); TSH reflex Free T4 0.85 uIU/mL (0.32-4.0); Total Protein 7.3 g/dL (6.5-8.0)
[2025-01-04 06:58] LABS: LDL Cholesterol Direct 178 mg/dL (<100)
== END 2025-01-03 10:08 | disposition home or self-care (01) ==
LOC: HO.HMGCLDS 10:07
PROVIDERS: PCP Internal Medicine; Visit Provider Internal Medicine
DX: S46.812A Strain of other muscles, fascia and tendons at shoulder and upper arm level, left arm, initial encounter (principal); I10 Essential (primary) hypertension; E78.9 Disorder of lipoprotein metabolism, unspecified; G43.109 Migraine with aura, not intractable, without status migrainosus; E05.90 Thyrotoxicosis, unspecified without thyrotoxic crisis or storm; Z91.09 Other allergy status, other than to drugs and biological substances; X58.XXXA Exposure to other specified factors, initial encounter; Y93.9 Activity, unspecified; Y92.9 Unspecified place or not applicable; Y99.9 Unspecified external cause status
CPT/HCPCS: 36415; 80053; 83721; 84443; 85025; 96127; 99212

== ENCOUNTER 2025-01-03 10:07 | Outpatient (AMB) | payer MEDICARE, MEDICAID, SELFPAY ==
[2025-01-03 10:09] VITALS: BP 128/84; PULSE 88; O2SAT 98; BMI 28.8
--- NOTE | 2025-01-03 10:09 | A.OFFPC_ITS ---
Vital Signs 01/03/25 10:09 Height 5 ft 5 in Weight 173 lb BMI 28.8 BP 128/84 Blood Pressure Location Rt brachial Position Sitting Pulse 88 Pulse Source Pulse Oximeter Pulse Oximetry (%) 98 Oxygen Delivery Method Room Air Intake Visit Reasons: L shoulder pain Allergies gabapentin Allergy (Unknown, Verified 01/03/25 10:09) rash Medication List - Last Reconciled 01/03/25 by Anuj Schmid MD atorvastatin 40 mg PO DAILY 90 days bisacodyl (Dulcolax (bisacodyl)) 20 mg (4 x 5 mg) PO ONCE 1 day cetirizine (Zyrtec) 10 mg PO DAILY PRN 90 days enalapril maleate 5 mg PO DAILY linaclotide (Linzess) 290 mcg PO QAM polyethylene glycol 3350 (Miralax) 238 grams PO ONCE 1 day simethicone 125 mg PO BID-QID PRN Tobacco use date assessed: 01/03/25 Dental Screening Dental Screen Date: 01/03/25 Did you have a dental visit in the last 12 months?: Yes Did you have a dental problem in the last 6 months where you did not have access to dental care?: No Was dental information given to patient?: Patient has dentist HPI L shoulder pain HPI Details History - The patient is a 64-year-old female pr esenting with musculoskeletal pain and joint discomfort. Also due for regular follow-up last time seen was July of 2024 - One month duration of left shoulder pa in, predominantly at night, causing d ifficulty with sleeping and breathing. - Upper back and shoulder area pain like ly due to muscle strain, which may be attributed to recent exercise activities. - left knee pain presented acutely today , with increased discomfort upon exertion. - Last complete blood test was conducted in June last year; the patient is under pharmacological management for hypertension and hyperlipidemia. - Experiencing varying episodes of lower limb pain impacting ambulation, with some days more affected than others. Patient have weakness in her left leg which is chronic She is requesting a handicap placard Form filled for 1 year Labs are needed today Problem List - Essential Hypertension - Hyperlipidemia - Arthralgia in left Knee - left trapezius strain - chronic weakness left leg Patient Instructions - Schedule and complete a blood test tod ay as ordered. - Limit arm use and strenuous activities to avoid aggravating the muscle strain. - Consider physical therapy for left tra pezius muscle pain - Take ibuprofen 200 mg with evening waldo ls to manage pain, ensuring it is taken once daily. - okay to take [id number] ibuprofe n with supper for a week - Maintain good hydration and follow a h ealthy lifestyle to manage hyperlipidemia and hypertension. Review of Systems - General: No fever no chills - Neurological: No headaches no dizziness - Ear nose throat: No sore throat no hearing difficulty no ear pain - Cardiovascular: No syncope, no chest pain, no palpitations - Gastrointestinal: No nausea vomiting or diarrhea - Endocrine: No polyuria polydipsia no heat intolerance - Genitourinary: No dysuria , no blood in urine Physical Exam General: No acute distress HEENT: No acute findings Neck: Supple Respiratory system: Able to talk in full sentences, no audible wheeze Cardiovascular: S1-S2 regular in rate and rhythm Gastrointestinal: Pain in the upper back area, especially at night Extremities: Discomfort over left trapezius muscle, shoulders with full range of motion 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 awake oriented x3 motor sensory intact Skin: Normal turgor [facility] Medical History Tubular adenoma of colon Surgical History S/P section H/O colonoscopy Social History Housing: House Are you a primary residential care facility manager to a significant other at home: No Do you presently have visiting nurse or other home services: No Alcohol intake: never Patient Tobacco Use Status: Never used Tobacco e-Cigarette/Vaping Use: Never Used Second Hand Smoke Exposure: Yes Current occupational status: unemployed Cognitive needs: No Hearing needs: No Vision needs: No Questionnaire PHQ-9 Over the last 2 weeks, how often have you been bothered by any of the following problems? 14138 - PHQ-9 Billing: Patient declined-do not bill Source: Developed by Drs. Yaron Olmstead, Amy Spain, Sandeep Bennett and colleagues, with an educational inder from [employer]. Thrive Questionnaire Date Thrive assessed: 01/03/25 AUDIT C Alcohol Use Questionnaire (AUDIT-C) 1. How often do you have a drink containing alcohol?: Never 3. How often do you have six or more drinks on one occasion?: Never Total Score: 0 Score Reviewed/Action Taken: Yes SHANKAR-7 AMB Questionnaire SHANKAR-7 Date SHANKAR - 7 assessed: 01/03/25 Feeling nervous, anxious, or on edge: 0 = Not at all Not being able to stop or control worryin = Not at all Worrying too much about different things: 0 = Not at all Trouble relaxin = Not at all Being so restless that it is hard to sit still: 0 = Not at all Becoming easily annoyed or irritable: 0 = Not at all Feeling afraid as if something awful might happen: 0 = Not at all Total SHANKAR-7 score (0-4 normal; 5-9 mild; 10-14 moderate; 15-21 severe): 0 Source: Developed by Drs. Yaron Olmstead, Amy Spain, Sandeep Bennett and colleagues, with an educational inder from [employer]. SHANKAR-7 Assessment Billing SHANKAR-7 Assessment Tool: SHANKAR-7 Assessment 86128 Physical exam (Primary Care) Vital Signs: Last Vital Signs Pulse 88 01/03/25 10:09 BP 128/84 01/03/25 10:09 Pulse Ox 98 01/03/25 10:09 Oxygen Delivery Method Room Air 01/03/25 10:09 BMI result Body Mass Index 28.8 Tobacco/Smoking Status: Tobacco use Status Tobacco use date assessed 01/03/25 01/03/25 10:11 Patient Tobacco Use Status Never used Tobacco 01/03/25 10:11 e-Cigarette/Vaping Use Never Used 01/03/25 10:11 Thrive Assessment: Date of Thrive Assessment Date Thrive assessed 01/03/25 01/03/25 10:11 Coding Level of Care Code Est Pt Level 4 (92189) Complex EM visit Add On G2211 Diagnoses Strain of left trapezius muscle, initial encounter S46.812A Encounter type: initial encounter Essential hypertension I10 Lipid disorder E78.9 Environmental allergies Z91.09 Complicated migraine G43.109 Hyperthyroidism E05.90 Additional Codes SHANKAR-7 Assessment Billing - SHANKAR-7 Assessment Tool: SHANKAR-7 Assessment 40315 ([id number]) Assessment & Plan Assessment & Plan (1) Strain of left trapezius muscle: Code(s): S46.812A - Strain of other muscles, fascia and tendons at shoulder and upper arm level, left arm, initial encounter Category: Medical Qualifiers: Encounter type: initial encounter Qualified Code(s): S46.812A - Strain of other muscles, fascia and tendons at shoulder and upper arm level, left arm, initial encounter (2) Essential hypertension: Code(s): I10 - Essential (primary) hypertension Category: Medical (3) Lipid disorder: Code(s): E78.9 - Disorder of lipoprotein metabolism, unspecified Category: Medical (4) Environmental allergies: Code(s): Z91.09 - Other allergy status, other than to drugs and biological substances Category: Medical (5) Complicated migraine: Code(s): G43.109 - Migraine with aura, not intractable, without status migrainosus Category: Medical (6) Hyperthyroidism: Code(s): E05.90 - Thyrotoxicosis, unspecified without thyrotoxic crisis or storm Category: Medical Plan History - The patient is a 64-year-old female presenting with musculoskeletal pain and joint discomfort. Also due for regular follow-up last time seen was July of 2024 - One month duration of left shoulder pain, predominantly at night, causing difficulty with sleeping and breathing. - Upper back and shoulder area pain likely due to muscle strain, which may be attributed to recent exercise activities. - left knee pain presented acutely today, with increased discomfort upon exertion. - Last complete blood test was conducted in June last year; the patient is under pharmacological management for hypertension and hyperlipidemia. - Experiencing varying episodes of lower limb pain impacting ambulation, with some days more affected than others. Patient have weakness in her left leg which is chronic She is requesting a handicap placard Form filled for 1 year Labs are needed today Problem List - Essential Hypertension - Hyperlipidemia - Arthralgia in left Knee - left trapezius strain - chronic weakness left leg Patient Instructions - Schedule and complete a blood test today as ordered. - Limit arm use and strenuous activities to avoid aggravating the muscle strain. - Consider physical therapy for left trapezius muscle pain - Take ibuprofen 200 mg with evening meals to manage pain, ensuring it is taken once daily. - okay to take [id number]-[id number] ibuprofen with supper for a week - Maintain good hydration and follow a healthy lifestyle to manage hyperlipidemia and hypertension. Orders: Orders Complete Blood Count Auto Diff Today E78.9 - Disorder of lipoprotein meta bolism, unspecified, G43.109 - Migraine with aura, not intractable, without status migrainosus, I10 - Essential (primary) hypertension, Z91.09 - Other allergy status, other than to drugs and biological substances Comprehensive Met. Panel Today E78.9 - Disorder of lipoprotein metabolism, unspecified, G43.109 - Migraine with aura, not intractable, without status migrainosus, I10 - Essential (primary) hypertension, Z91.09 - Other allergy status, other than to drugs and biological substances TSH reflex Free T4 Today E05.90 - Thyrotoxicosis, unspecified without thyrotoxic crisis or storm LDL Cholesterol Direct Today E78.9 - Disorder of lipoprotein metabolism, unspecified, G43.109 - Migraine with aura, not intractable, without status migrainosus, I10 - Essential (primary) hypertension, Z91.09 - Other allergy status, other than to drugs and biological substances Medications: Refilled enalapril maleate 5 mg PO DAILY 90 tabs 1RF High blood pressure atorvastatin 40 mg PO DAILY 90 days 90 tabs 1RF E78.9 - Disorder of lipoprotein metabolism, unspecified cetirizine (Zyrtec) 10 mg PO DAILY 90 days PRN 90 caps 0RF allergy symptoms Z91.09 - Other allergy status, other than to drugs and biological substances
--- OUTSIDE RECORDS SUMMARY | 2025-01-03 11:22 | XMS_ITS | Clinical Summary ---
Author Organization [employer] Address [address] [place] [address] Care Team Providers Care Acid Concentrator Name Role Phone Unavailable Primary Care Provider Unavailabl e Allergies Active Allergy Reactions Criticality Noted Date Comments Gabapentin 02/29/2024 Medications chlorhexidine (Peridex) 0.12 % solution Please use 15 ml solution twice daily as mouthwash. Swish for 60 seconds and spit. 473 mL 1 02/29/2024 Active enalapril (Vasotec) 5 MG tablet Take 5 mg by mouth Once per day. 01/04/2024 Active Linzess 145 MCG capsule Take 145 mcg by mouth Once per day. 10/29/2023 Active Active Problems No known active problems Social History Tobacco Use Types Packs/Day Years Used Date Smoking Tobacco: Never Smokeless Tobacco: Never Tobacco Cessation:Counseling Given: Not Answered Comments Unknown Sex and Gender Information Value Date Recorded Sex Assigned at Female 07/27/2022 10:33 AM EDT Legal Sex Female 10:33 AM EDT Gender Identity Female 07/27/2022 10:33 AM EDT Sexual Orientation Choose not to disclose 2021 10:33 AM EDT Last Filed Vital Signs Vital Sign Reading Time Taken Comments Blood Pressure 134/62 06/05/2024 10:27 AM EDT Pulse 65 03/28/2024 8:08 AM EDT Temperature - - Respiratory Rate - - Oxygen Saturation - - Inhaled Oxygen Concentration - - Weight - - Height - - Body Mass Index - - Plan of Treatment Health Maintenance Due Date Last Done Comments CT Colonography 1962 Colonoscopy 1962 Colorectal Cancer Screening 1962 Depression Screening 1962 FIT DNA/Cologuard 1962 FIT 1962 FOBT 1962 HIV Screening 1962 SDOH Screening 1962 Sigmoidoscopy 1962 Alcohol/Substance Use Screening 1974 Hepatitis C Screening 1980 DTaP/Tdap/Td Vaccines (1 - Tdap) 1981 Pap Smear 1983 Cervical Cancer Screening 1992 HPV/Cotest 1992 Mammogram 2002 Pneumococcal Vaccine: 50+ Years (1 of 1 - PCV) 2012 Zoster Vaccines (1 of 2) 2012 COVID-19 Vaccine (3 - season) 2024 09/17/2021, 08/27/2021 Influenza Vaccine (#1) 2024 Dental Oral Exam 09/29/2024 03/28/2024 Dental Prophylaxis 09/29/2024 03/28/2024, 1 10/30/2020, 08/15/2018, Additional history exists Dental X-Ray: Bitewings 03/29/2025 03/28/20 24, 02/29/2024, 02/29/2024, Additional history exists Tobacco Screening 06/05/2025 06/05/2024 Dental X-Ray: Full Mouth 03/29/2027 03/28/2024, 06/27 RSV Patients and Patients Aged 60 years or older (1 - 1-dose 75+ series) 2037 HIB Vaccines Aged Out No longer eligi ble based on patient's age to complete this topic HPV Vaccines Aged Out No longer eligi ble based on patient's age to complete this topic Hepatitis A Vaccines Aged Out No long er eligible based on patient's age to complete this topic Hepatitis B Vaccines Aged Out No long er eligible based on patient's age to complete this topic IPV Vaccines Aged Out No longer eligi ble based on patient's age to complete this topic Meningococcal Vaccine Aged Out No gianluca fady eligible based on patient's age to complete this topic RSV under 20 months Aged Out No longe r eligible based on patient's age to complete this topic Rotavirus Vaccines Aged Out No longer eligible based on patient's age to complete this topic Procedures Procedure Name Priority Date/Time Associated Diagnosis Comments PROPHYLAXIS - ADULT Routine 03/28/2024 8 :00 AM EDT INTRAORAL - COMPLETE SERIES OF RADIOGRAPHIC IMAGES Routine 03/28/2024 8:00 AM EDT Dental calculus Necrosis of dental pulp Defective dental druze PERIODIC ORAL EVALUATION - ESTABLISHED PATIENT Routine 03/28/2024 8:00 AM EDT Dental calculus Necrosis of dental pulp Defective dental druze from Last 3 Months or Most Recently Relevant to Health Maintenance Insurance [facility] MEDICAID STAND ADULT
--- OUTSIDE RECORDS SUMMARY | 2025-01-03 11:22 | XMS_ITS | Clinical Summary ---
Author Organization [facility] ity Address [address] [place] [address] Care Team Providers Care First Aid Attendant Name Role Phone Anuj Schmid MD Primary Care Provider [phone] Social History Tobacco Use Types Packs/Day Years Used Date Smoking Tobacco: Never Assessed Comments Unknown Sex and Gender Information Value Date Recorded Sex Assigned at Not on file Legal Sex Female 8:26 AM EST Gender Identity Not on file Sexual Orientation Not on file Plan of Treatment Health Maintenance Due Date Last Done Comments Breast Cancer Screening 1962 DTaP,Tdap,and Td Vaccines (1 - Tdap) 1981 Cervical Cancer Screening: P ap Smear 1983 Pneumococcal Vaccine: 50+ Ye ars (1 of 1 - PCV) 2012 Zoster Vaccines (1 of 2) 2012 Colorectal Cancer Screening: Colonoscopy 08/30/2022 Depression Screening 08/30/2022 HIV Screening 08/30/2022 Hepatitis C Screening 08/30/2022 Social Influencers of Health Screening 08/30/2022 COVID-19 Vaccine (1 - 2023-2 5 season) 2024 Influenza Vaccine (#1) 2024 RSV Immunization Adult Patie nts (1 - 1-dose 75+ series) 2037 HIB [...] on patient's age to complete this topic MMR Vaccines Aged Out No longer eligi ble based on patient's age to complete this topic Meningococcal ACWY Vaccine Aged Out N o longer eligible based on patient's age to complete this topic Meningococcal B Vaccine Aged Out No l onger eligible based on patient's age to complete this topic Pneumococcal Vaccine: Pediat rics (0 to 5 Years) and At-Risk Patients (6 to 64 Years) Aged Out No longer eligible b ased on patient's age to complete this topic RSV Immunization Patients Un cody 20 months Aged Out No longer eligible b ased on patient's age to complete this topic Varicella Vaccines Aged Out No longer eligible based on patient's age to complete this topic Advance Directives Documents on File Type Date Recorded 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
== END 2025-01-03 10:33 | disposition home or self-care (01) ==
LOC: HO.HMCC 10:07
PROVIDERS: PCP Internal Medicine; Visit Provider Internal Medicine
DX: S46.812A Strain of other muscles, fascia and tendons at shoulder and upper arm level, left arm, initial encounter (principal); I10 Essential (primary) hypertension; E78.9 Disorder of lipoprotein metabolism, unspecified; Z91.09 Other allergy status, other than to drugs and biological substances; G43.109 Migraine with aura, not intractable, without status migrainosus; E05.90 Thyrotoxicosis, unspecified without thyrotoxic crisis or storm

== ENCOUNTER 2025-03-07 09:58 | Outpatient (AMB) | payer MEDICARE, MEDICAID, SELFPAY ==
[2025-03-07 10:00] VITALS: BP 110/80; PULSE 109; RESP 16; TEMP 37.2; O2SAT 96; BMI 28.6
--- NOTE | 2025-03-07 10:00 | A.OFFPC_ITS ---
Vital Signs 03/07/25 10:00 Height 5 ft 5 in Weight 172 lb BMI 28.6 BP 110/80 Blood Pressure Location Rt brachial Position Sitting Respiration 16 Pulse 109 H Pulse Source Pulse Oximeter Temp 99.0 F Temp Source Oral Pulse Oximetry (%) 96 Oxygen Delivery Method Room Air Intake Visit Reasons: shoulder pain & arm tingling Allergies gabapentin Allergy (Unknown, Verified 03/07/25 10:01) rash Medication List - Last Reconciled 03/07/25 by Anuj Schmid MD atorvastatin 80 mg PO DAILY 90 days cetirizine (Zyrtec) 10 mg PO DAILY PRN 90 days enalapril maleate 5 mg PO DAILY linaclotide (Linzess) 290 mcg PO QAM Tobacco use date assessed: 03/07/25 Dental Screening Dental Screen Date: 03/07/25 Did you have a dental visit in the last 12 months?: Yes Did you have a dental problem in the last 6 months where you did not have access to dental care?: No Was dental information given to patient?: Patient has dentist HPI shoulder pain & arm tingling HPI Details History - The patient is a 64-year-old female pr esenting with left shoulder pain and upper respiratory symptoms. - Left shoulder pain has been ongoing si nce at least December. The pain starts from the neck area and seems to affect the whole arm. It is described as feeling like electricity or pins and needles. - No history of physical therapy, though the patient mentioned using ibuprofen for pain relief. - The patient reported a fever last nigh t, reaching 99?F, and feeling very cold, indicating cold-like symptoms like sore throat and cough. - The patient denies any significant wea kness in the hand . Medications: - Ibuprofen (for pain relief) - Tylenol (for fever management) Social History: - Recent travel to [place] over the weekend. Problem List - Left shoulder pain - Fever - Upper respiratory symptoms - Tingling sensation in left arm Patient Instructions - Drink lots of water. - Take Tylenol as needed for fever. - Rest and allow time to recover from th e current illness. - Return for an x-ray of the neck once f eeling better. - Await a call for scheduling a nerve co nduction study for the left arm. Review of Systems - Neurological: No headaches no dizziness - Ear nose throat: No sore throat no hearing difficulty no ear pain - Cardiovascular: No syncope, no chest pain, no palpitations - Gastrointestinal: No nausea vomiting or diarrhea - Endocrine: No polyuria polydipsia no heat intolerance - Genitourinary: No dysuria , no blood in urine Physical Exam General: No acute distress HEENT: Mild erythema, uvula midline Neck: Supple but have some discomfort with maneuvering Respiratory system: Able to talk in full sentences, no audible wheeze, lungs are clear Cardiovascular: S1-S2 regular in rate and rhythm Gastrointestinal: No pain Extremities: Left shoulder pain with tingling sensation, left shoulder with slightly limited range of motion 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 awake oriented x3 motor sensory intact hand health management consultant equal bilateral Skin: Normal turgor PFSH Medical History Tubular adenoma of colon Surgical History S/P section H/O colonoscopy Social History Housing: House Are you a primary progressive care nurse to a significant other at home: No Do you presently have visiting nurse or other home services: No Alcohol intake: never Patient Tobacco Use Status: Never used Tobacco e-Cigarette/Vaping Use: Never Used Second Hand Smoke Exposure: Yes Current occupational status: unemployed Cognitive needs: No Hearing needs: No Vision needs: Yes Questionnaire Thrive Questionnaire Date Thrive assessed: 01/03/25 SHANKAR-7 AMB Questionnaire SHANKAR-7 Date SHANKAR - 7 assessed: 01/03/25 Source: Developed by Drs. Yaron Olmstead, Amy Spain, Sandeep Bennett and colleagues, with an educational inder from [employer]. Physical exam (Primary Care) Vital Signs: Last Vital Signs Temp 99.0 F 03/07/25 10:00 Pulse 109 H 03/07/25 10:00 Resp 16 03/07/25 10:00 BP 110/80 03/07/25 10:00 Pulse Ox 96 03/07/25 10:00 Oxygen Delivery Method Room Air 03/07/25 10:00 BMI result Body Mass Index 28.6 Tobacco/Smoking Status: Tobacco use Status Tobacco use date assessed 03/07/25 03/07/25 10:06 Patient Tobacco Use Status Never used Tobacco 03/07/25 10:06 e-Cigarette/Vaping Use Never Used 03/07/25 10:06 Thrive Assessment: Date of Thrive Assessment Date Thrive assessed 01/03/25 03/07/25 10:06 Coding Level of Care Code Est Pt Level 3 (47894) Diagnoses Cervicalgia M54.2 Paresthesia of left arm R20.2 Common cold J00 Assessment & Plan Assessment & Plan (1) Cervicalgia: Code(s): M54.2 - Cervicalgia Category: Medical (2) Paresthesia of left arm: Code(s): R20.2 - Paresthesia of skin Category: Medical (3) Common cold: Code(s): J00 - Acute nasopharyngitis [common cold] Category: Medical Plan History - The patient is a 64-year-old female presenting with left shoulder pain and upper respiratory symptoms. - Left shoulder pain has been ongoing since at least December. The pain starts from the neck area and seems to affect the whole arm. It is described as feeling like electricity or pins and needles. - No history of physical therapy, though the patient mentioned using ibuprofen for pain relief. - The patient reported a fever last night, reaching 99?F, and feeling very cold, indicating cold-like symptoms like sore throat and cough. - The patient denies any significant weakness in the hand . Medications: - Ibuprofen (for pain relief) - Tylenol (for fever management) Social History: - Recent travel to [place] over the weekend. Problem List - Left shoulder pain - Fever - Upper respiratory symptoms - Tingling sensation in left arm Patient Instructions - Drink lots of water. - Take Tylenol as needed for fever. - Rest and allow time to recover from the current illness. - Return for an x-ray of the neck once feeling better. - Await a call for scheduling a nerve conduction study for the left arm. Orders: Orders XR cervical spine 2V Today M54.2 - Cervicalgia NE nerve conduction velocity Today M54.2 - Cervicalgia, R20.2 - Paresthesia of skin NE electromyogram (EMG) Today M54.2 - Cervicalgia, R20.2 - Paresthesia of skin
--- OUTSIDE RECORDS SUMMARY | 2025-03-07 11:06 | XMS_ITS | Clinical Summary ---
Author Organization [facility] ity Address [address] [place] [address] Care Team Providers Care Master Rigger Name Role Phone Anuj Schmid MD Primary Care Provider [phone] Social History Tobacco Use Types Packs/Day Years [...] - 2023-2 5 season) 2024 Influenza Vaccine (Season Ended) 2025 RSV Immunization Adult Patie nts (1 - [...] Documents on File Type Date Recorded Patient Student Services Representative Expl anation Health Care Decision (hx) 02/26/2021 AD MARCOS DIRECTIVE Health Care Decision (hx) 02/26/2021 AD MARCOS DIRECTIVE Care Teams Master Rigger Relationship Specialty Start Date End Date Anuj Schmid MD [address] [place] [address] PCP - General Internal Medicine 02/26/21
== END 2025-03-07 10:44 | disposition home or self-care (01) ==
LOC: HO.HMCC 09:58
PROVIDERS: PCP Internal Medicine; Visit Provider Internal Medicine
DX: M54.2 Cervicalgia (principal); R20.2 Paresthesia of skin; J00 Acute nasopharyngitis [common cold]

== ENCOUNTER → 2025-03-07 09:58 | Outpatient (BNVA) | payer MEDICARE, MEDICAID, SELFPAY | PROVIDERS: PCP Internal Medicine; Visit Provider Internal Medicine | DX: M54.2 Cervicalgia (principal); R20.2 Paresthesia of skin; J00 Acute nasopharyngitis [common cold] | CPT/HCPCS: 99212 ==

== ENCOUNTER 2025-04-04 08:57 | Outpatient (AMB) | payer MEDICARE, MEDICAID, SELFPAY ==
[2025-04-04 08:59] VITALS: BP 132/100; PULSE 92; TEMP 36.8; O2SAT 96; BMI 28.1
--- NOTE | 2025-04-04 08:59 | A.OFFPC_ITS ---
Vital Signs 04/04/25 08:59 Height 5 ft 5 in Weight 169 lb BMI 28.1 BP 132/100 H Blood Pressure Location Lt brachial Position Sitting Pulse 92 Pulse Source Pulse Oximeter Temp 98.3 F Temp Source Oral Pulse Oximetry (%) 96 Oxygen Delivery Method Room Air Intake Visit Reasons: 3m follow up Odd Job Worker Required: No Is last menstrual period known: No Post menopausal: Yes Patient : No Allergies gabapentin Allergy (Unknown, Verified 04/04/25 09:04) rash Medication List - Last Reconciled 04/04/25 by Anuj Schmid MD atorvastatin 80 mg PO DAILY 90 days cetirizine (Zyrtec) 10 mg PO DAILY PRN 90 days enalapril maleate 5 mg PO DAILY linaclotide (Linzess) 290 mcg PO QAM Tobacco use date assessed: 04/04/25 Dental Screening Dental Screen Date: 03/07/25 Did you have a dental visit in the last 12 months?: Yes Did you have a dental problem in the last 6 months where you did not have access to dental care?: No Was dental information given to patient?: Patient has dentist HPI 3m follow up HPI Details History - The patient is a 64-year-old female pr esenting with essential hypertension and persistent elevated LDL cholesterol levels. The hypertension was noted to be 132/100 mmHg in today's visit, a rise from a previous measurement of 110/80 mmHg. She reports compliance with medication, although she felt her blood pressure was high earlier in the day. She attributes this to possibly being late and running. She denies any associated symptoms such as headache or nausea. - The patient has a history of elevated LDL cholesterol, with a recent value of 178 mg/dL. She has been non-compliant with lipid-lowering medication and reports that she has been attempting dietary modifications, such as eliminating rice and eating more vegetables. Despite these efforts, her LDL cholesterol remains elevated. - The patient reports panic/anxiety synd alexis and chronic weakness in the left leg. This weakness has been present for a long duration, and she has previously been evaluated by neurology. The outcomes of those consultations are unavailable. - She experiences tingling sensations in the left arm, with variability and no consistent pattern. - The patient also reports significant l kai stress, including the malfunctioning of her central air conditioning and the passing of three dogs recently, which has contributed to her emotional distress. Medical History: - Essential hypertension - Hyperlipidemia - Migraine - Environmental allergies - Panic anxiety syndrome - Chronic weakness in the left leg Social History: - The patient lives in a large house wit h a broken central air conditioning system. - She owns three dogs, with two recently , and the third living indoors. - She follows a diet with no rice and pr imarily vegetables, no fried foods noted. - She expresses concerns about financial capacity, suggesting coping strategies for home cooling. Family History: - Family history of hypercholesterolemia is noted. Diagnostic Results: - Labs: Normal hemoglobin and white coun t. Normal electrolytes, kidney function, and liver enzymes noted. Elevated LDL cholesterol at 178 mg/dL. Problem List - Essential Hypertension - Hyperlipidemia - Chronic Migraine - Panic Anxiety Syndrome - Chronic Left Leg Weakness Patient Instructions - Continue taking prescribed antihyperte nsive medication daily. Enalapril 5 mg - Start taking Zetia (10 mg) for cholest jimenez control, as instructed. Continue atorvastatin 80 mg as well - Monitor cholesterol levels through reg ular fasting blood tests. - consider an appointment with a cardiol ogist to further address cholesterol management. - Use meloxicam for pain as needed, but not daily, to avoid increasing blood pressure. - Seek replacement/repair for air condit ioning to improve home living conditions. Review of Systems - General: No fever no chills - Neurological: No headaches no dizziness - Ear nose throat: No sore throat no hearing difficulty no ear pain - Cardiovascular: No syncope, no chest pain, no palpitations - Gastrointestinal: No nausea vomiting or diarrhea - Endocrine: No polyuria polydipsia no heat intolerance - Genitourinary: No dysuria , no blood in urine Physical Exam General: No acute distress HEENT: No acute findings Neck: Supple Respiratory system: Able to talk in full sentences, no audible wheeze Cardiovascular: S1-S2 regular in rate and rhythm Gastrointestinal: No pain Extremities: No edema PHARMACY TEACHER: Alert awake oriented x3 motor sensory intact Skin: Normal turgor PFSH Medical History Tubular adenoma of colon Surgical History S/P section H/O colonoscopy Social History Housing: House Are you a primary urgent care nurse practitioner to a significant other at home: No Do you presently have visiting nurse or other home services: No Alcohol intake: never Patient Tobacco Use Status: Never used Tobacco e-Cigarette/Vaping Use: Never Used Second Hand Smoke Exposure: Yes Current occupational status: unemployed Cognitive needs: No Hearing needs: No Vision needs: Yes Questionnaire PHQ-9 Over the last 2 weeks, how often have you been bothered by any of the following problems? 01834 - PHQ-9 Billing: Patient declined-do not bill Source: Developed by Drs. Yaron Olmstead, Amy Spain, Sandeep Bennett and colleagues, with an educational inder from [employer]. Thrive Questionnaire Date Thrive assessed: 04/04/25 SHANKAR-7 AMB Questionnaire SHANKAR-7 Date SHANKAR - 7 assessed: 01/03/25 Source: Developed by Drs. Yaron Olmstead, Amy Spain, Sandeep Bennett and colleagues, with an educational inder from [employer]. Physical exam (Primary Care) Vital Signs: Last Vital Signs Temp 98.3 F 04/04/25 08:59 Pulse 92 04/04/25 08:59 BP 132/100 H 04/04/25 08:59 Pulse Ox 96 04/04/25 08:59 Oxygen Delivery Method Room Air 04/04/25 08:59 BMI result Body Mass Index 28.1 Tobacco/Smoking Status: Tobacco use Status Tobacco use date assessed 04/04/25 04/04/25 09:05 Patient Tobacco Use Status Never used Tobacco 04/04/25 09:05 e-Cigarette/Vaping Use Never Used 04/04/25 09:05 Thrive Assessment: Date of Thrive Assessment Date Thrive assessed 04/04/25 04/04/25 09:05 Coding Level of Care Code Est Pt Level 4 (03378) Complex EM visit Add On G2211 Diagnoses Lipid disorder E78.9 Essential hypertension I10 Panic anxiety syndrome F41.0 Complicated migraine G43.109 Environmental allergies Z91.09 Weakness of right foot R29.898 Assessment & Plan Assessment & Plan (1) Lipid disorder: Code(s): E78.9 - Disorder of lipoprotein metabolism, unspecified Category: Medical (2) Essential hypertension: Code(s): I10 - Essential (primary) hypertension Category: Medical (3) Panic anxiety syndrome: Code(s): F41.0 - Panic disorder [episodic paroxysmal anxiety] Category: Medical (4) Complicated migraine: Code(s): G43.109 - Migraine with aura, not intractable, without status migrainosus Category: Medical (5) Environmental allergies: Code(s): Z91.09 - Other allergy status, other than to drugs and biological substances Category: Medical (6) Weakness of right foot: Code(s): R29.898 - Other symptoms and signs involving the musculoskeletal system Category: Medical Plan This is longitudinal care/follow-up appointment - The patient is a 64-year-old female presenting with essential hypertension and persistent elevated LDL cholesterol levels. The hypertension was noted to be 132/100 mmHg in today's visit, a rise from a previous measurement of 110/80 mmHg. She reports compliance with medication, although she felt her blood pressure was high earlier in the day. She attributes this to possibly being late and running. She denies any associated symptoms such as headache or nausea. - The patient has a history of elevated LDL cholesterol, with a recent value of 178 mg/dL. She has been non-compliant with lipid-lowering medication and reports that she has been attempting dietary modifications, such as eliminating rice and eating more vegetables. Despite these efforts, her LDL cholesterol remains elevated. - The patient reports panic/anxiety syndrome and chronic weakness in the left leg. This weakness has been present for a long duration, and she has previously been evaluated by neurology. The outcomes of those consultations are unavailable. - She experiences tingling sensations in the left arm, with variability and no consistent pattern. - The patient also reports significant life stress, including the malfunctioning of her central air conditioning and the passing of three dogs recently, which has contributed to her emotional distress. Medical History: - Essential hypertension - Hyperlipidemia - Migraine - Environmental allergies - Panic anxiety syndrome - Chronic weakness in the left leg Social History: - The patient lives in a large house with a broken central air conditioning system. - She owns three dogs, with two recently , and the third living indoors. - She follows a diet with no rice and primarily vegetables, no fried foods noted. - She expresses concerns about financial capacity, suggesting coping strategies for home cooling. Family History: - Family history of hypercholesterolemia is noted. Diagnostic Results: - Labs: Normal hemoglobin and white count. Normal electrolytes, kidney function, and liver enzymes noted. Elevated LDL cholesterol at 178 mg/dL. Problem List - Essential Hypertension - Hyperlipidemia - Chronic Migraine - Panic Anxiety Syndrome - Chronic Left Leg Weakness Patient Instructions - Continue taking prescribed antihypertensive medication daily. Enalapril 5 mg - Start taking Zetia (10 mg) for cholesterol control, as instructed. Continue atorvastatin 80 mg as well - Monitor cholesterol levels through regular fasting blood tests. - consider an appointment with a fleet manager/dispatch to further address cholesterol management. - Use meloxicam for pain as needed, but not daily, to avoid increasing blood pressure. - Seek replacement/repair for air conditioning to improve home living conditions. Orders: Orders Comprehensive [place]. Panel Fast Today E78.9 - Disorder of lipoprotein metabolism, unspecified, F41.0 - Panic disorder [episodic paroxysmal anxiety], G43.109 - Migraine with aura, not intractable, without status migrainosus, I10 - Essential (primary) hypertension, R29.898 - Other symptoms and signs involving the musculoskeletal system, Z91.09 - Other allergy status, other than to drugs and biological substances Lipid Panel Today E78.9 - Disorder of lipoprotein metabolism, unspecified, F41.0 - Panic disorder [episodic paroxysmal anxiety], G43.109 - Migraine with aura, not intractable, without status migrainosus, I10 - Essential (primary) hypertension, R29.898 - Other symptoms and signs involving the musculoskeletal system, Z91.09 - Other allergy status, other than to drugs and biological substances Medications: New meloxicam 7.5 mg PO DAILY 30 tabs 0RF ezetimibe 10 mg PO DAILY 90 tabs 0RF 90 days E78.9 - Disorder of lipoprotein metabolism, unspecified
--- OUTSIDE RECORDS SUMMARY | 2025-04-04 09:10 | XMS_ITS | Clinical Summary ---
Author Organization [facility] ity Address [address] [place] [address] Care Team Providers Care Suspender Maker Name Role Phone Anuj Schmid MD Primary Care Provider [phone] Social History Tobacco Use Types Packs/Day Years [...] 2023-2 5 season) 2024 Influenza Vaccine (#1) 2025 RSV Immunization Adult Patie nts (1 [...] 5 Years) and At-Risk Patients (6 to 49 Years) Aged Out No longer eligible b ased on patient's age to complete this topic RSV Immunization Patients Un cody 20 months Aged Out No longer eligible b ased on patient's age to complete this topic Varicella Vaccines Aged Out No longer eligible based on patient's age to complete this topic Advance Directives Documents on File Type Date Recorded Patient Rn Testing Expl anation Health Care Decision (hx) 02/26/2021 AD MARCOS DIRECTIVE Health Care Decision (hx) 02/26/2021 AD MARCOS DIRECTIVE Care Teams Suspender Maker Relationship Specialty Start Date End Date Anuj Schmid MD [address] [place] [address] PCP - General Internal Medicine 02/26/21
--- OUTSIDE RECORDS SUMMARY | 2025-04-04 09:10 | XMS_ITS | Clinical Summary ---
Author Organization [facility] Address [address] [place] [address] Care Team Providers Care Efficiency Engineer Name Role Phone Unavailable Primary Care Provider Unavailabl e Allergies Active Allergy Reactions Criticality Noted Date Comments Gabapentin 02/29/2024 Medications chlorhexidine (Peridex) 0.12 % solution Please use 15 ml solution twice daily as mouthwash. Swish for 60 seconds and spit. 473 mL 1 4 Active Additional Information Patient not taking.Reported on 01/22/2025 enalapril (Vasotec) 5 MG tablet Take 5 mg by mouth Once per day. 4 Active Linzess 145 MCG capsule Take 145 mcg by mouth Once per day. 4 Active atorvastatin (Lipitor) 80 MG tablet Take 1 tablet by mouth Once per day. 5 Active Active Problems No known active problems Encounters Date Type Department Care Team Description 03/12/2025 9:00 AM EDT Office Visit [facility] [address] [place] [address] Robby Pan 03/06/2025 1:00 PM EDT Office Visit [facility] [address] [place] [address] Robby Pan 01/22/2025 8:00 AM EDT Office Visit [facility] [address] [place] [address] Suzanna Swanson from Last 3 Months Social History Tobacco Use Types Packs/Day Years Used Date Smoking Tobacco: Never Smokeless Tobacco: Never Tobacco Cessation:Counseling Given: Not Answered Alcohol Use Standard Drinks/Week Comments Defer 0 (1 standard drink = 0.6 oz pur e alcohol) Comments Unknown Sex and Gender Information Value Date Recorded Sex Assigned at Female 07/27/2022 10:33 AM EDT Legal Sex Female 10:33 AM EDT Gender Identity Female 07/27/2022 10:33 AM EDT Sexual Orientation Choose not to disclose 2021 10:33 AM EDT Last Filed Vital Signs Vital Sign Reading Time Taken Comments Blood Pressure 110/88 03/12/2025 9:10 AM EDT Pulse 65 03/28/2024 8:08 AM [...] Screening 1962 SDOH Screening 1962 Sigmoidoscopy 1962 Disability Screening 1962 Alcohol/Substance Use Screening 1974 Hepatitis C Screening 1980 DTaP/Tdap/Td Vaccines (1 - Tdap) 1981 Pap Smear 1983 Cervical Cancer Screening 1992 HPV/Cotest 1992 Mammogram 2002 Pneumococcal Vaccine: 50+ Years (1 of 1 - PCV) 2012 Zoster Vaccines (1 of 2) 2012 COVID-19 Vaccine (3 - 2023- season) 2024 09/17/2021, 08/27/2021 Dental X-Ray: Bitewings 03/29/2025 03/28/20 24, 02/29/2024, 02/29/2024, Additional history exists Influenza Vaccine (#1) 2025 Dental Prophylaxis 07/25/2025 01/22/2025, 0 03/28/2024, 08/29/2021, Additional history exists Dental Oral Exam 09/06/2025 03/06/2025, 03/28/2024 Tobacco Screening 03/12/2026 03/12/2025 Dental X-Ray: Full Mouth 03/29/2027 03/28/2024, 06/27 [...] Procedure Name Priority Date/Time Associated Diagnosis Comments CASE PRESENTATION, DETAILED AND EXTENSIVE TREATMENT PLANNING Routine 03/12/2025 9:00 AM EDT 7 MIFL RESIN-BASED COMPOSITE - 4 OR MORE SURFACES (ANTERIOR) Routine 03/12/2025 9:00 AM EDT 7 INTRAORAL - PERIAPICAL FIRST RADIOGRAPHIC IMAGE Routine 03/06/2025 1:00 PM EDT CASE PRESENTATION, DETAILED AND EXTENSIVE TREATMENT PLANNING Routine 03/06/2025 1:00 PM EDT PERIODIC ORAL EVALUATION - ESTABLISHED PATIENT Routine 03/06/2025 1:00 PM EDT PROPHYLAXIS - ADULT Routine 01/22/2025 8 :00 AM EDT ORAL HYGIENE INSTRUCTIONS Routine 01/22/2025 8:00 AM EDT CASE PRESENTATION, DETAILED AND EXTENSIVE TREATMENT PLANNING Routine 01/22/2025 8:00 AM EDT INTRAORAL - COMPLETE SERIES OF RADIOGRAPHIC IMAGES Routine 03/28/2024 8:00 AM EDT Dental calculus Necrosis of dental pulp Defective dental alevism from Last 3 Months or Most Recently Relevant to Health Maintenance Insurance [facility] [employer] STAND ADULT
== END 2025-04-04 09:33 | disposition home or self-care (01) ==
LOC: HO.HMCC 08:58
PROVIDERS: PCP Internal Medicine; Visit Provider Internal Medicine
DX: E78.9 Disorder of lipoprotein metabolism, unspecified (principal); I10 Essential (primary) hypertension; F41.0 Panic disorder [episodic paroxysmal anxiety]; G43.109 Migraine with aura, not intractable, without status migrainosus; Z91.09 Other allergy status, other than to drugs and biological substances; R29.898 Other symptoms and signs involving the musculoskeletal system

== ENCOUNTER → 2025-04-04 08:57 | Outpatient (BNVA) | payer MEDICARE, MEDICAID, SELFPAY | PROVIDERS: PCP Internal Medicine; Visit Provider Internal Medicine | DX: E78.9 Disorder of lipoprotein metabolism, unspecified (principal); F41.9 Anxiety disorder, unspecified; I10 Essential (primary) hypertension; G43.109 Migraine with aura, not intractable, without status migrainosus; R29.898 Other symptoms and signs involving the musculoskeletal system; Z91.09 Other allergy status, other than to drugs and biological substances | CPT/HCPCS: 99212 ==

== ENCOUNTER 2025-06-27 08:08 | Outpatient (AMB) | payer MEDICARE, MEDICAID, SELFPAY ==
[2025-06-27 08:15] VITALS: BP 132/80; PULSE 86; O2SAT 98; BMI 27.5
--- NOTE | 2025-06-27 08:15 | MHC.PC.OV ---
Vital Signs 06/27/25 08:15 Height 5 ft 5 in Weight 165 lb BMI 27.5 BP 132/80 Blood Pressure Location Lt brachial Position Sitting Pulse 86 Pulse Source Pulse Oximeter Pulse Oximetry (%) 98 Intake Visit Reasons: 3m f/u Allergies gabapentin Allergy (Unknown, Verified 04/04/25 09:04) rash Medication List - Last Reconciled 06/27/25 by Anuj Schmid MD atorvastatin 80 mg PO DAILY 90 days cetirizine (Zyrtec) 10 mg PO DAILY PRN 90 days enalapril maleate 5 mg PO DAILY ezetimibe 10 mg PO DAILY 90 days linaclotide (Linzess) 290 mcg PO QAM meloxicam 7.5 mg PO DAILY Tobacco use date assessed: 04/04/25 Dental Screening Dental Screen Date: 03/07/25 HPI 3m f/u HPI Details History of Present Illness The patient is a 64-year-old female presenting with regular follow-up appointment Hypertension: Blood pressure is in prehypertensive range patient is taking enalapril 5 mg daily Tolerating medication no side effects Allergies: - The patient experiences allergies, particularly noted in the winter months. - Symptoms include sensitivity to dust and animal dander, as she has three dogs. - Allergic reactions are aggravated by cleaning activities in environments with dust exposure. Lipid disorder: Continue atorvastatin 80 mg and Zetia Chronic back pain stable at this time Social History: - The patient has three dogs at home and reports allergic reactions related to them. - Experiences allergic symptoms during cleaning due to dust exposure. - Has experienced recent family bereavement, with the loss of her sister. Problem List - Allergies - Hyperlipidemia - Hypertension - chronic back pain - neuropathy right lower extremity causing slight footdrop Patient Instructions - Continue taking allergy medication when necessary, especially during winter. - Refill and take prescribed medications consistently for cholesterol and hypertension management. - Minimize dust exposure, particularly during cleaning activities. Follow-up August Review of Systems - General: No fever no chills - Neurological: No headaches no dizziness - Ear nose throat: No sore throat no hearing difficulty no ear pain - Cardiovascular: No syncope, no chest pain, no palpitations - Gastrointestinal: No nausea vomiting or diarrhea - Endocrine: No polyuria polydipsia no heat intolerance - Genitourinary: No dysuria , no blood in urine Physical Exam General: No acute distress, HEENT: No acute findings Neck: Supple Respiratory system: Able to talk in full sentences, no audible wheeze, lungs are clear Cardiovascular: S1-S2 regular in rate and rhythm Gastrointestinal: No pain Extremities: No new findings MEDICAL INSURANCE BILLER: Alert awake oriented x3 motor intact, patient walks with slight limp due to footdrop right lower extremity Skin: Normal turgor, PFSH Medical History Tubular adenoma of colon Surgical History S/P section H/O colonoscopy Social History Housing: House Are you a primary customer care associate to a significant other at home: No Do you presently have visiting nurse or other home services: No Alcohol intake: never Patient Tobacco Use Status: Never used Tobacco e-Cigarette/Vaping Use: Never Used Second Hand Smoke Exposure: Yes Current occupational status: unemployed Cognitive needs: No Hearing needs: No Vision needs: Yes Questionnaire Thrive Questionnaire Date Thrive assessed: 01/03/25 SHANKAR-7 AMB Questionnaire SHANKAR-7 Date SHANKAR - 7 assessed: 01/03/25 Source: Developed by Drs. Yaron Olmstead, Amy Spain, Sandeep Bennett and colleagues, with an educational inder from [employer]. Physical exam (Primary Care) Vital Signs: Last Vital Signs Pulse 86 06/27/25 08:15 BP 132/80 06/27/25 08:15 Pulse Ox 98 06/27/25 08:15 BMI result Body Mass Index 27.5 Tobacco/Smoking Status: Tobacco use Status Tobacco use date assessed 04/04/25 06/27/25 08:18 Patient Tobacco Use Status Never used Tobacco 06/27/25 08:18 e-Cigarette/Vaping Use Never Used 06/27/25 08:18 Thrive Assessment: Date of Thrive Assessment Date Thrive assessed 01/03/25 06/27/25 08:18 Coding Level of Care Code Est Pt Level 4 (86007) Diagnoses Essential hypertension I10 Lipid disorder E78.9 Complicated migraine G43.109 Environmental allergies Z91.09 Weakness of right foot R29.898 Assessment & Plan Assessment & Plan (1) Essential hypertension: Code(s): I10 - Essential (primary) hypertension Category: Medical (2) Lipid disorder: Code(s): E78.9 - Disorder of lipoprotein metabolism, unspecified Category: Medical (3) Complicated migraine: Code(s): G43.109 - Migraine with aura, not intractable, without status migrainosus Category: Medical (4) Environmental allergies: Code(s): Z91.09 - Other allergy status, other than to drugs and biological substances Category: Medical (5) Weakness of right foot: Code(s): R29.898 - Other symptoms and signs involving the musculoskeletal system Category: Medical Plan History of Present Illness The patient is a 64-year-old female presenting with regular follow-up appointment suffers from chronic migraine but is stable for a while. Hypertension: Blood pressure is in prehypertensive range patient is taking enalapril 5 mg daily Tolerating medication no side effects Allergies: - The patient experiences allergies, particularly noted in the winter months. - Symptoms include sensitivity to dust and animal dander, as she has three dogs. - Allergic reactions are aggravated by cleaning activities in environments with dust exposure. Lipid disorder: Continue atorvastatin 80 mg and Zetia Chronic back pain stable at this time Social History: - The patient has three dogs at home and reports allergic reactions related to them. - Experiences allergic symptoms during cleaning due to dust exposure. - Has experienced recent family bereavement, with the loss of her sister. Problem List - Allergies - Hyperlipidemia - Hypertension - chronic back pain - neuropathy right lower extremity causing slight footdrop Patient Instructions - Continue taking allergy medication when necessary, especially during winter. - Refill and take prescribed medications consistently for cholesterol and hypertension management. - Minimize dust exposure, particularly during cleaning activities. Follow-up August Medications: Refilled atorvastatin 80 mg PO DAILY 90 tabs 1RF 90 days E78.9 - Disorder of lipoprotein metabolism, unspecified cetirizine (Zyrtec) 10 mg PO DAILY PRN 90 caps 0RF allergy symptoms 90 days Z91.09 - Other allergy status, other than to drugs and biological substances enalapril maleate 5 mg PO DAILY 90 tabs 1RF High blood pressure ezetimibe 10 mg PO DAILY 90 tabs 0RF 90 days E78.9 - Disorder of lipoprotein metabolism, unspecified meloxicam 7.5 mg PO DAILY 30 tabs 0RF
--- OUTSIDE RECORDS SUMMARY | 2025-06-27 08:24 | XMS_ITS | Clinical Summary ---
Author Organization [facility] ity Address [address] [place] [address] Care Team Providers Care Law Writer Name Role Phone Anuj Schmid MD Primary Care Provider [phone] Social History Tobacco Use Types Packs/Day Years Used Date Smoking Tobacco: Never Assessed Comments Unknown Sex and Gender Information Value Date Recorded Sex Assigned at Not on file Legal Sex Female 8:26 AM EST Gender Identity Not on file Sexual Orientation Not on file Plan of Treatment Health Maintenance Due Date Last Done Comments Breast Cancer Screening 1962 Colorectal Cancer Screening: Colonoscopy 1962 DTaP,Tdap,and Td Vaccines (1 - Tdap) 1981 Cervical Cancer Screening: P ap Smear 1983 Pneumococcal Vaccine: 50+ Ye ars (1 of 1 - PCV) 2012 Zoster Vaccines (1 of 2) 2012 HIV Screening 08/30/2022 Hepatitis C Screening 08/30/2022 Social Influencers of Health Screening 08/30/2022 Depression Screening 09/27/2024 COVID-19 Vaccine (1 - 2023-2 5 season) 2025 Influenza Vaccine (#1) 2025 RSV Immunization Adult [...] Documents on File Type Date Recorded Patient Manager Scientific Expl anation Health Care Decision (hx) 02/26/2021 AD MARCOS DIRECTIVE Health Care Decision (hx) 02/26/2021 AD MARCOS DIRECTIVE Care Teams Law Writer Relationship Specialty Start Date End Date Anuj Schmid MD [address] [place] [address] PCP - General Internal Medicine 02/26/21
--- OUTSIDE RECORDS SUMMARY | 2025-06-27 08:24 | XMS_ITS | Clinical Summary ---
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 Role Phone Unavailable Primary Care Provider [...] 2012 Zoster Vaccines (1 of 2) 2012 Dental X-Ray: Bitewings 03/29/2025 03/28/20 24, 02/29/2024, 02/29/2024, Additional history exists COVID-19 Vaccine ( season) 2025 09/17/2021, 08/27/2021 Influenza Vaccine (#1) 2025 Dental Prophylaxis 07/25/2025 [...] Procedure Name Priority Date/Time Associated Diagnosis Comments PERIODIC ORAL EVALUATION - ESTABLISHED PATIENT Routine 03/06/2025 1:00 PM EDT PROPHYLAXIS - ADULT Routine 01/22/2025 8 :00 AM EDT INTRAORAL - COMPLETE SERIES OF RADIOGRAPHIC IMAGES Routine 03/28/2024 8:00 AM EDT Dental calculus Necrosis of dental pulp Defective dental anabaptism from Last 3 Months or Most Recently Relevant to Health Maintenance Insurance [facility] MEDICAID STAND ADULT
== END 2025-06-27 08:36 | disposition home or self-care (01) ==
LOC: HO.HMCC 08:09
PROVIDERS: PCP Internal Medicine; Visit Provider Internal Medicine
DX: I10 Essential (primary) hypertension (principal); E78.9 Disorder of lipoprotein metabolism, unspecified; G43.109 Migraine with aura, not intractable, without status migrainosus; Z91.09 Other allergy status, other than to drugs and biological substances; R29.898 Other symptoms and signs involving the musculoskeletal system

== ENCOUNTER 2025-06-27 08:08 | Outpatient (REF) | payer MEDICARE, MEDICAID, SELFPAY ==
[2025-06-27 10:53] LABS: Alanine Aminotransferase 19 U/L (0-31); Albumin Level 4.4 g/dL (3.5-5.0); Alkaline Phosphatase 83 U/L (39-117); Anion Gap 8 (12-20); Aspartate Amino Transferase 21 U/L (5-31); Blood Urea Nitrogen 13 mg/dL (9-16); Calcium 9.5 mg/dL (8.4-10.2); Carbon Dioxide 30 mmol/L (22-29); Chloride 108 mmol/L (96-108); Cholesterol 266 mg/dL (<200); Estimated Glomerular Filt Rate > 60; HDL Cholesterol 50 mg/dL (>40); Potassium 4.3 mmol/L (3.3-5.1); Sodium 142 mmol/L (135-145); Total Protein 7.3 g/dL (6.5-8.0); Triglycerides 69 mg/dL (<150)
== END 2025-06-27 08:09 | disposition home or self-care (01) ==
LOC: HO.HMGCLDS 08:08
PROVIDERS: PCP Internal Medicine; Visit Provider Internal Medicine
DX: E78.9 Disorder of lipoprotein metabolism, unspecified (principal); I10 Essential (primary) hypertension; F41.0 Panic disorder [episodic paroxysmal anxiety]; G43.109 Migraine with aura, not intractable, without status migrainosus; Z91.09 Other allergy status, other than to drugs and biological substances; R29.898 Other symptoms and signs involving the musculoskeletal system
CPT/HCPCS: 36415; 80053; 80061; 99212